=== PATIENT | male | born 1955 | race Caucasian/White ===

== ENCOUNTER → 2018-03-08 08:07 | Outpatient (CLI) | payer OTHER, MEDICARE, SELFPAY ==
[2018-03-08 09:02] LABS: Add Manual Diff / Slide Review NO; Basophils Percent Auto 1.2 % (0-2); Eosinophils Percent Auto 2.6 % (2-4); Hematocrit 42.1 % (41-53); Hemoglobin 14.4 g/dL (13.5-17.5); Lymphocytes Percent Auto 23.1 % (25-40); Mean Corpuscular HGB Conc 34.1 % (30-36); Mean Corpuscular Hemoglobin 30.2 PG (26-34); Mean Corpuscular Volume 88.6 fL (80-100); Neutrophils Absolute Auto 3400 /uL (3000-5900); Neutrophils Percent Auto 63.1 % (50-75); Platelet Count 237 X10^3/uL (150-400); Red Blood Cell Count 4.75 X10^6/uL (4.5-5.9); Red Cell Distribution Width 13.7 % (11.6-14.8); White Blood Cell Count 5.4 X10^3/uL (4.5-11.0)
[2018-03-08 09:11] LABS: Alanine Aminotransferase 47 IU/L (21-72); Albumin 4.4 g/dL (3.5-5.0); Albumin Globulin Ratio 1.5 (1.0-2.8); Alkaline Phosphatase 85 U/L (38-126); Aspartate Aminotransferase 41 IU/L (17-59); BUN Creatinine Ratio 11.1 (6-22); Bilirubin Total 0.6 mg/dL (0.2-1.3); Blood Urea Nitrogen 10 mg/dL (9-20); Calcium 9.6 mg/dL (8.4-10.2); Carbon Dioxide 30 mmol/L (22-32); Chloride 105 mmol/L (98-107); Cholesterol 154 mg/dL (140-199); Estimated Glomerular Filt Rate > 60.0 mL/min (>60); Globulin 2.9 g/dL (1.7-4.1); Glucose 97 mg/dL (80-110); HDL Cholesterol 52 mg/dL (40-60); HEMOLYSIS < 15 (0-50); LDL Cholesterol Calculated 78 mg/dL (<100); Potassium 4.2 mmol/L (3.4-5.1); Sodium 146 mmol/L (137-145); Total Protein 7.3 g/dL (6.3-8.2); Triglycerides 119 mg/dL (35-150)
== END ==
PROVIDERS: PCP Family Medicine; Visit Provider Family Medicine
DX: Z01.818 Encounter for other preprocedural examination (principal); Z13.220 Encounter for screening for lipoid disorders; Z13.29 Encounter for screening for other suspected endocrine disorder
CPT/HCPCS: 36415; 80053; 80061; 84443; 85025

== ENCOUNTER 2018-04-01 05:51 | Day surgery (SDC) | payer OTHER, SELFPAY ==
[2018-03-24 08:25] VITALS: BMI 29.9
[2018-04-01] VITALS (14 sets, daily range): BP systolic 98–163; BP diastolic 47–86; PULSE 48–80; RESP 15–20; TEMP 36.3–37.4; O2SAT 95–100; BMI 29.9
--- NOTE | 2018-04-01 | DI.RAD.S_ITS ---
PROCEDURE: XR CERVICAL SPINE 2V OR 3V INDICATIONS: C4-5, C5-6 MOBI C TECHNIQUE: 2 intraoperative fluoroscopic view(s) of the cervical spine were acquired. COMPARISON: None. FINDINGS: Intraoperative fluoroscopic images of cervical spine shows intervertebral spacer placement at C4-5 and C5-6 levels. Alignment of cervical spine is anatomic. IMPRESSION: Fluoroscopy guidance was provided intraoperatively for C4-5 and C5-6 fusion. Dictated by: Dar Alcantar M.D. on 04/01/2018 at 10:30 Approved by: Dar Alcantar M.D. on 04/01/2018 at 10:36
[2018-04-01] MEDS: LACTATED RINGERS 1,000 ML 42 ML IV ×2 (06:50→09:18)
--- NOTE | 2018-04-01 07:37 | PM.PREOP ---
Pre-operative Note Interval Note Pre-op Check: Yes History & Physical Reviewed by Physician and Yes Exam Performed Changes: No
[2018-04-01] MEDS: CEFAZOLIN 2 GM/100 ML FROZ.PIGGY IV ×2 (07:50→15:41)
--- NOTE | 2018-04-01 08:22 | SUR.OPER ---
Supine, head on gel donut. Arms padded with gel pads, tucked at sides, towel roll under shoulders. Safety belt at thigh. Legs uncrossed.
[2018-04-01] MEDS: SODIUM CHLORIDE 0.9% 1,000 ML, GENTAMICIN 80 MG IRR (08:45)
[2018-04-01] MEDS: BUPIVACAINE 0.25% W/ EPI VIAL 50 ML INJ (09:26)
--- NOTE | 2018-04-01 09:33 | P.OP_ITS ---
Operative Date/Time/Diagnoses Date of procedure: 04/01/18 Time of procedure: 09:29 Pre-op diagnosis: Cervical disc herniation with myelopathy Post-op diagnosis: same Procedure & Clinicians Procedure: C4-5 and C5-6 anterior cervical diskectomy and artificial disc replacements Use of microscope Same procedure as scheduled: Yes Indications: [age] year old male with intractable pain from cervical disc herniation with a left C6 radiculopathy. They had failed conservative management and requested operative intervention. Risks and benefits of surgery were discussed and appropriate consents were obtained. Surgeon: Hugh Aldana Wall Covering Contractor: Kelly Fuchs Anesthesia Type: General Operative Notes Findings: None Closure Type: primary Specimen(s): none sent Implants & Drains: Grzegorz LDR Mobi-C Estimated Blood Loss (mL): 5 Procedure in detail: Patient was brought to the operating room and intubated on the table. A time-out was performed. Preoperative antibiotics were given. The neck was prepped and draped in the standard sterile fashion. Using a skin fold, we made a 3 cm oblique incision on the left side. We used Bovie to go through the platysma and then did a standard anterolateral blunt dissection down to the precervical fascia. Fascia was nicked and elevated up. A marker was placed and x-ray was taken for localization. We then subperiosteally elevated up the longus colli muscles. Self-retaining retractors were placed. [place] pins were placed under x-ray guidance to be parallel to the endplates. We then brought in the microscope. A scalpel used to perform an annulotomy. We then used a combination of pituitaries and curettes and Kerrison to perform a complete anterior diskectomy at C5-6. We took down the PLL and used Kerrison to remove any posterior disc material and osteophytes. At the end we could from the nerve hook cephalad caudally and out the foramen and everything was opened. We distracted open with the parallel last trimmer. We then used the horseshoes for sizing. We then used the trials. We then inserted a 19 x 15 x 6 mm size Mobi-C artificial disc replacement under fluoroscopic guidance for positioning. The traction was released and x-ray was checked again. We then went up to C4-5 and moved our [place] pin up. Again a complete diskectomy was performed. We took down the PLL and removed the posterior disc material and osteophytes. A nerve hook could be run easily posterior to the vertebral bodies and out to the neural foramen. We trialed and this time placed a 15 x 15 x 5 mm Mobi-C ADR at C4-5 under fluoroscopic guidance. The traction was released and the x-ray was checked. We then removed our retractors and [place] pins. The wound was irrigated. Final x-rays taken. The wound was irrigated. There was no bleeding. The carotid was beating nicely. The platysma was closed. The superficial was closed. The skin was closed. A sterile dressing was placed. They were then extubated and brought to recovery room with no complications. Complications: none Condition: stable Disposition: PACU Plan for aftercare: Inpatient overnight. Probable discharge home tomorrow.
--- NOTE | 2018-04-01 10:30 | SUR.PHASEI ---
Pt wide awake, hemodynamically stable and turns independently to R side. Dressing remains intact, + CMS to lower extremities. Lisandro denies pain at this time, but has c/o being claustraphobic and states, I'm having a hard time with the neck brace. Pt ready to transfer to [facility] shortly.
--- NOTE | 2018-04-01 10:56 | SUR.OPER ---
Supine, head on gel donut. Arms padded with gel pads, tucked at sides, towel roll under shoulders. Safety belt at thigh. Legs uncrossed. Pillow under knees. Tape over blankets on legs.
[2018-04-01] MEDS: LACTATED RINGERS 1,000 ML 125 ML IV ×2 (11:57→21:46)
--- NOTE | 2018-04-01 12:29 | PC.NURSE ---
Post op: Arrived to room 221 from PACU at 1055. Awake and alert, oriented X3. 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 Does NOT wear hearing aids. Reports possibly early onset Parkinson's (per patient and his )- has tremors, memory loss, and tardive dyskinesia (from Hx of taking Risperdal which he has been off X2 years). Answers questions appropriately and follows commands WNL. Dressing to anterior neck C/D/I. Removed soft collar while in bed to facilitate eating. Rates pain 1/10, mostly in L shoulder. States I have a high pain tolerance. Understands he can request pain meds at any time. Denies paresthesias. Reports the numbness/tingling that he had in LUE before surgery seems to have resolved. C/O sore throat, denies nausea. Sitting up in bed working on some ice cream and crackers. IVF per orders, site in L hand WNL. SCD's placed. Oriented to room and call light, instructed to call for assist OOB. Surgery precautions discussed. Fall precautions in place.
--- NOTE | 2018-04-01 15:39 | PT.IIE ---
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) History of arthroplasty of left shoulder (Resolved 01/2017) Hx of surgical procedure (Resolved 07/2016) Hx of vasectomy (Resolved) Medical History (Last Updated 03/24/18 @ 08:38 by Lesvia Serrano RN) Arthritis (Acute) Constipation (Acute) Edema (Acute) [place] (hard of hearing) (Acute) HTN (hypertension) (Acute) History of short term memory loss (Acute) Tremors of nervous system (Acute) BPH (benign prostatic hyperplasia) (Chronic) Carpal tunnel syndrome (Chronic 1998) Chronic back pain (Chronic 1998) Chronic cough (Chronic 2014) Dementia (Chronic 2000) Depression (Chronic 1974) Excess skin (Chronic 11/2014) Hyperlipidemia (Chronic) PTSD (post-traumatic stress disorder) (Chronic 1974) Parkinson's disease (Chronic 2010) Restless leg syndrome (Chronic 2004) Sleep apnea (Chronic 1999) Tardive dyskinesia (Chronic) Abnormal chest x-ray (Resolved 1985) Foot pain (Resolved 2004) Hx of diabetes mellitus (Resolved ~11/2014) Shoulder pain (Resolved 1998) Physical Therapy Inpatient Evaluation/Re-Eval M1 PT/OT-IP Prior Functional Status Start: 04/01/18 16:53 Freq: NEEDED Status: Active Protocol: Document 04/01/18 16:59 [facility] (Rec: 04/01/18 17:21 [facility] [id number]) Medical Review Prior Functional Status Medical History Reviewed Yes Diet/Fluid Consistency Regular Thin Liquids Communication Independent Mobility and Gait Pt states occasionally used a straight cane. Activities of Daily Living and IADL's Pt states independent with all ADL and IADL needs. Social History Household Members spouse Living Arrangements House Number of Floors (Floors) One Floor Number of Stairs To Enter/Railing? Pt has a ramp to enter the house. Home Environment Standard Height Toilet Walk in Shower Home Equipment Shower Seat with Backrest Hand Held Shower M2 PT-IP Current Condition Start: 04/01/18 17:21 Freq: NEEDED Status: Active Protocol: Document 04/01/18 15:39 [facility] (Rec: 04/01/18 17:50 [facility] [id number]) Physical Therapy Current Condition Current Condition Evaluation Date 04/01/18 Treatment Diagnosis S/P C4-6 ant cerv. diskectomy & artificial disc replacement; diff in walkin Onset Date 04/01/18 Precautions Cervical Spine Precautions Soft Collar for Comfort No Heavy Lifting Log Roll Lumbar Precautions Log Roll Brace soft collar M3 PT-IP Subjective Start: 04/01/18 17:21 Freq: NEEDED Status: Active Protocol: Document 04/01/18 15:39 [facility] (Rec: 04/01/18 17:50 AB [id number]) Subjective Physical Therapy Visit Type Type Initial Evaluation Visit Start Time 15:39 Visit Stop Time 16:00 Total Visit Minutes 21 Number of SHINGLE PACKER Visits 0 Physical Therapy Visit Comments Patient Comments pt agreeable to do PT Therapy Pain Assessment Pain When Pain Assessed At Rest Pain Present Pain Present Pain Reported Location Shoulder Intensity 1 Scale Used Numeric (1 - 10) M4 PT-IP Mobility and Gait Start: 04/01/18 17:21 Freq: NEEDED Status: Active Protocol: Document 04/01/18 15:39 [facility] (Rec: 04/01/18 17:50 AB [id number]) PT-Bed Mobility Assessment Rolling Type of Rolling Log Rolling Level of Assist Standby Assistance Supine to Sit Supine to Sit Standby Assistance Sit to Supine Sit to Supine Standby Assistance PT-Transfer Assessment Sit to and From Stand Sit to and from Stand Standby Assistance Equipment Transfer Assistive Device Gait Belt Gait Assessment Gait Gait Assistance Required: Standby Assistance Distance (Feet) 40 Able to Maintain Weight Bearing Status Yes During Gait Assistive Devices Assistive Device None Gait Belt Orthotic/Prosthetic Devices or Brace: No Factors Limiting Gait Function Factors Limiting Gait Function Decreased Activity Tolerance Decreased Strength Pain Comments Gait Comments pt refused to use soft collar during mobility stating that he is claustrophobic. pt was able to maintain his precautions even without collar on. PT-Balance Assessment Sitting Balance and Reactions Static Sitting Balance Ability Normal Dynamic Sitting Balance Ability Normal Standing Balance and Reactions Static Standing Balance Ability Good Dynamic Standing Balance Ability Good Device Used without AD M5 PT-IP Objective Assessments Start: 04/01/18 17:21 Freq: NEEDED Status: Active Protocol: Document 04/01/18 15:39 [facility] (Rec: 04/01/18 17:50 AB [id number]) Orientation Orientation/Cognition Level of Alertness Alert Orientation Name Age Birthday Month Date Year Day of Week Place Situation Safety Awareness Understands Safety Issues Memory Description No Deficits Noted Gross Range of Motion Lower Extremity ROM Assessment Within Functional Limits Strength Lower Extremity Strength Assessment Within Functional Limits Sensation Assessment Sensation Gross Sensation WNL Muscle Tone Muscle Tone WNL Yes M6 PT-IP Treatment Start: 04/01/18 17:21 Freq: NEEDED Status: Active Protocol: Document 04/01/18 15:39 [facility] (Rec: 04/01/18 17:50 AB [id number]) Physical Therapy Treatment Education Education Provided Precautions Post-Op Packet Safety M7 PT-IP Assessment and Plan Start: 04/01/18 17:21 Freq: NEEDED Status: Active Protocol: Document 04/01/18 15:39 [facility] (Rec: 04/01/18 17:50 AB [id number]) PT Summary Assessment and Plan Potential Rehabilitation Potential Good Status of Condition at Evaluation Stable Summary Impairments Pain ROM Strength Balance Bed Mobility Transfers Gait Activity Tolerance Assessment Summary pt doing well with mobility requiring SBA. pt plans to go home with spouse to assist. Goals Bed Mobility Goal Independent Transfer Goal Independent Gait Goal Independent Gait Distance 200 Other Goals STG: improve bed mobility, transfers, ambulation without AD up to 200 ft mod I LTG: to improve ambulation without AD up to 300 ft mod I Days to Meet Goals 2 Frequency of Treatment Frequency Of Treatment Once a Day Treatment Plan Physical Therapy Treatment Plan Bed Mobility Training Transfer Training Gait Training Therapeutic Exercise Balance Retraining Post Op Education Discharge Planning Hot or Cold Pack Neuromuscular Re-ed Coordination Retraining Manual Therapy Recommendations To Nursing Amount of Assist Needed Standby Assistance Discharge Recommendations PT Discharge Recommendations Home with Assistance
[2018-04-01] MEDS: NAPROXEN 250 MG TABLET 500 MG PO (16:55)
--- NOTE | 2018-04-01 17:21 | OT.IP.EVAL ---
Current Diagnoses Spinal stenosis, cervical region (04/01/18) Other cervical disc displacement, unspecified cervical region (04/01/18) Radiculopathy, cervical region (04/01/18) Surgery Performed Operation Date: 04/01/18 07:45 Actual Procedures p C4-5, C5-6 Anterior discectomy & artificial disc replacement - Hugh Aldana MD Past Medical History (Last Updated 03/24/18 @ 08:38 by Lesvia Serrano RN) Arthritis (Acute) Constipation (Acute) Edema (Acute) [place] (hard of hearing) (Acute) HTN (hypertension) (Acute) History of short term memory loss (Acute) Tremors of nervous system (Acute) BPH (benign prostatic hyperplasia) (Chronic) Carpal tunnel syndrome (Chronic 1998) Chronic back pain (Chronic 1998) Chronic cough (Chronic 2014) Dementia (Chronic 2000) Depression (Chronic 1974) Excess skin (Chronic 11/2014) Hyperlipidemia (Chronic) PTSD (post-traumatic stress disorder) (Chronic 1974) Parkinson's disease (Chronic 2010) Restless leg syndrome (Chronic 2004) Sleep apnea (Chronic 1999) Tardive dyskinesia (Chronic) Abnormal chest x-ray (Resolved 1985) Foot pain (Resolved 2004) Hx of diabetes mellitus (Resolved ~11/2014) Shoulder pain (Resolved 1998) Surgical History (Last Updated 03/24/18 @ 08:38 by Lesvia Serrano RN) Hx of tonsillectomy (Acute) History of Jeff-en-Y gastric bypass (Resolved 11/2014) History of arthroplasty of left shoulder (Resolved 01/2017) Hx of surgical procedure (Resolved 07/2016) Hx of vasectomy (Resolved) Occupational Therapy Inpatient Evaluation/Re-Eval M1 PT/OT-IP Prior Functional Status Start: 04/01/18 16:53 Freq: NEEDED Status: Active Protocol: Document 04/01/18 16:59 [facility] (Rec: 04/01/18 17:21 [facility] [id number]) Medical Review Prior Functional Status Medical History Reviewed Yes Diet/Fluid Consistency Regular Thin Liquids Communication Independent Mobility and Gait Pt states occasionally used a straight cane. Activities of Daily Living and IADL's Pt states independent with all ADL and IADL needs. Social History Household Members spouse Living Arrangements House Number of Floors (Floors) One Floor Number of Stairs To Enter/Railing? Pt has a ramp to enter the house. Home Environment Standard Height Toilet Walk in Shower Home Equipment Shower Seat with Backrest Hand Held Shower M2 OT-IP Current Condition Start: 04/01/18 16:53 Freq: Status: Active Protocol: Document 04/01/18 16:59 [facility] (Rec: 04/01/18 17:21 [facility] [id number]) Occupational Therapy Current Condition Current Condition Evaluation Date 04/01/18 Treatment Diagnosis cervical disc herniation with myelopathy Diagnosis Onset Date 04/01/18 Post Operative Precautions Cervical Spine Precautions Soft Collar for Comfort No Heavy Lifting Log Roll Lumbar Precautions Log Roll M3 OT- IP Subjective and Pain Start: 04/01/18 16:53 Freq: Status: Active Protocol: Document 04/01/18 16:59 [facility] (Rec: 04/01/18 17:21 [facility] [id number]) OT- Subjective Occupational Therapy Visit Type Type Initial Evaluation Visit Start Time 15:07 Visit Stop Time 15:22 Total Visit Minutes 15 Occupational Therapy Visit Comments Patient/Caregiver Goals Pt wanting to go home when stable tomorrow. OT Pain Assessment Pain When Pain Assessed At Rest Pain Present Pain Present Pain Reported Location Shoulder Intensity 2 Scale Used Numeric (1 - 10) Description Aching M4 OT- IP ADL's Start: 04/01/18 16:53 Freq: Status: Active Protocol: Document 04/01/18 16:59 [facility] (Rec: 04/01/18 17:21 [facility] [id number]) OT ADL-Dressing Comments OT Dressing Comments Pt able to cross his legs over for socks. Pt not wanting to wear soft collar due to feeling of claustrophobia. OT ADL-Toileting General Evaluation Toileting Ability Independent Comments OT Toileting Comments Pt able to push IV pole and into the bathroom and kick IV pole over threshold while standing on one foot with good balance. M6 OT- IP Functional Cognition Start: 04/01/18 16:53 Freq: Status: Active Protocol: Document 04/01/18 16:59 [facility] (Rec: 04/01/18 17:21 [facility] [id number]) Cognitive Factors Limiting Selfcare Function Cognitive Ability Level of Alertness Alert Patient Orientation Name Place Situation Attention Span Ability Capable of Focused Attention Capable of Sustained Attention Ability to Follow Commands Able to Follow Multi-Step Commands Memory Description No Deficits Noted Safety Awareness Underestimates Need for Assistance Cognitive Comments Cognitive Assessment Comments Pt needing cue to slow down and to use call button before getting up. M7 OT- IP Mobility and Balance Start: 04/01/18 16:53 Freq: Status: Active Protocol: Document 04/01/18 16:59 [facility] (Rec: 04/01/18 17:21 [facility] [id number]) OT- Bed Mobility Assessment Rolling Type of Rolling Roll to Right Supine to Sit Supine to Sit Assist Standby Assistance Sit to Supine Sit to Supine Assist Standby Assistance OT-Transfer Assessment Sit to and From Stand Sit to and from Stand Standby Assistance Transfers Transfer Ability Standby Assistance Technique Transfer Destination Bed Devices Transfer Assistive Devices None Gait Belt Comments Mobility Comments Pt able to walk in the room while holding IV pole and without at times. OT- Balance Assessment Sitting Balance and Reactions Static Sitting Balance Ability Normal Dynamic Sitting Balance Ability Normal Standing Balance and Reactions Static Standing Balance Ability Normal Dynamic Standing Balance Ability Good M8 OT- IP Objective Assessments Start: 04/01/18 16:53 Freq: Status: Active Protocol: Document 04/01/18 16:59 [facility] (Rec: 04/01/18 17:21 [facility] [id number]) OT Gross Range of Motion Upper Extremity Range of Motion Assessment Within Functional Limits OT Strength Upper Extremity Strength Assessment Within Functional Limits M9 OT- IP Assessment and Plan Start: 04/01/18 16:53 Freq: Status: Active Protocol: Document 04/01/18 16:59 [facility] (Rec: 04/01/18 17:21 [facility] [id number]) OT Summary Assessment and Plan Potential Rehabilitation Potential Excellent Analytic Complexity at Evaluation Low Summary OT Impairments Pain Functional Cognition Bathing Progress Towards Goals Progressing Toward Goals Assessment Summary Pt doing well and mainly just needing vc to slow down. Pt looking to go home tomorrow. Therefore to touch base with pt's and pt before discharge. Goals Dressing Goal Independent Bathing Goal Standby Assistance Shower Transfer Goal Standby Assistance Patient/Caregiver Education Goal Demonstrate Post-Op Precautions Caregiver Independent Assisting Patient Days to Meet Goals 2 Frequency of Treatment Frequency Of Treatment Once a Day Treatment Plan OT Treatment Plan ADL Training Functional Cognition Training Functional Mobility Patient/Family Education Discharge Planning Other Treatment Recommendations and Next Shower Treatment Focus Discharge Recommendations OT Discharge Recommendations Home with Assistance
[2018-04-01] MEDS: AMANTADINE 100 MG CAPSULE PO (20:53)
[2018-04-01] MEDS: buPROPion SR 150 MG TAB PO (20:54)
[2018-04-01] MEDS: GABAPENTIN 300 MG CAPSULE PO (20:54)
[2018-04-01] MEDS: SIMVASTATIN 20 MG TABLET PO (20:54)
[2018-04-01] MEDS: hydrOXYzine pamoate 25 MG CAPSULE PO (20:55)
[2018-04-02 00:02] VITALS: BP 139/75; PULSE 58; RESP 18; TEMP 36.9; O2SAT 97
[2018-04-02] MEDS: CEFAZOLIN 2 GM/100 ML FROZ.PIGGY IV (00:03)
--- NOTE | 2018-04-02 00:44 | PC.NURSE ---
Rn Heart Note: 0005: Awake, sitting up at bedside. Pt states his pain level is 1/10. Pt tolerating snack without difficulty swallowing. IV in place in lt wrist with LR infusing at 125cc/hr. Dressing to lt anterior neck intact, with small amount serosanguinous drainage. Pt continues to wear soft cervical collar.
[2018-04-02 04:10] VITALS: BP 135/67; PULSE 52; RESP 20; TEMP 36.4; O2SAT 98
[2018-04-02] MEDS: LACTATED RINGERS 1,000 ML 125 ML IV (06:24)
[2018-04-02 07:30] VITALS: BP 128/88; PULSE 55; RESP 18; TEMP 36.7; O2SAT 99
--- NOTE | 2018-04-02 07:53 | PM.PNPO.1 ---
Subjective Date Patient Seen: 04/02/18 Time Patient Seen: 07:53 Interval history: Doing very well. Almost all the arm symptoms have resolved. Minimal pain. Exam Vital Signs (past 8 hours): - 04/02/18 00:02 04/02/18 04:10 Temperature 98.4 F 97.5 F L Pulse Rate 58 L 52 L Respiratory Rate 18 20 Blood Pressure 139/75 135/67 Pulse Oximetry 97 98 Oxygen Delivery Method Room Air Const Orientation: alert and oriented x3 Back/Spine/Pelvis Other: Mild drainage on dressing. 5/5 motor both upper extremities Assessment & Plan Post-op Postoperative Procedures Operation Date: 04/01/18 07:45 Actual Procedures Side Surgeon p C4-5, C5-6 Anterior discectomy & artificial disc replacement Hugh Aldana MD He is doing very well. Discharged home after therapy. Quality VTE Deep Vein Thrombosis/Pulmonary Embolism Present on Admission: No
[2018-04-02] MEDS: NAPROXEN 250 MG TABLET 500 MG PO (09:39)
[2018-04-02] MEDS: ASCORBIC ACID 500 MG TABLET 1000 MG PO (09:40)
[2018-04-02] MEDS: ASPIRIN EC 81 MG TABLET PO (09:40)
[2018-04-02] MEDS: AMANTADINE 100 MG CAPSULE PO (09:40)
[2018-04-02] MEDS: buPROPion SR 150 MG TAB PO (09:40)
[2018-04-02] MEDS: CHOLECALCIFEROL (VITAMIN D3) 1,000 UNIT TABLET 1000 UNIT PO (09:40)
[2018-04-02] MEDS: VITAMIN E 400 UNIT CAPSULE PO (09:41)
[2018-04-02] MEDS: MULTIVITAMIN 1 TABLET 1 TAB PO (09:41)
[2018-04-02] MEDS: TAMSULOSIN 0.4 MG CAPSULE PO (09:41)
[2018-04-02] MEDS: CYANOCOBALAMIN (VITAMIN B-12) 500 MCG TABLET 2500 MCG PO (09:41)
--- NOTE | 2018-04-02 09:58 | CM.DANOTE ---
DCP: Case received, EMR reviewed and met with patient. Introduced self and role. DCP template completed with information currently available. Patient is a 62 year old male who admitted yesterday for surgical day surgery, to the care of the hospitalist team. PCP: Heather Collier. Payer: [place] [employer]. Patient came to hospital for anterior cervical diskectomy. Patient has a history of cervical disc herniation. Met with patient and spouse in room. Wearing a neck brace, alert and oriented, pleasant. Is independent at home, lives in [place]. P: To return home, may be seeing outpatient physical therapy. Estella Choi RN/Mail Handler
--- NOTE | 2018-04-02 10:46 | OT.IP.TRT ---
Current Diagnoses Spinal stenosis, cervical region (04/01/18) Other cervical disc displacement, unspecified cervical region (04/01/18) Radiculopathy, cervical region (04/01/18) Surgery Performed Operation Date: 04/01/18 07:45 Actual Procedures p C4-5, C5-6 Anterior discectomy & artificial disc replacement - Hugh Aldana MD Occupational Therapy Treatment Note M2 OT-IP Current Condition Start: 04/01/18 16:53 Freq: Status: Active Protocol: Document 04/01/18 16:59 [facility] (Rec: 04/01/18 17:21 [facility] [id number]) Occupational Therapy Current Condition Current Condition Evaluation Date 04/01/18 Treatment Diagnosis cervical disc herniation with myelopathy Diagnosis Onset Date 04/01/18 Post Operative Precautions Cervical Spine Precautions Soft Collar for Comfort No Heavy Lifting Log Roll Lumbar Precautions Log Roll M3 OT- IP Subjective and Pain Start: 04/01/18 16:53 Freq: Status: Active Protocol: Document 04/02/18 10:45 [facility] (Rec: 04/02/18 10:45 [facility] [id number]) OT- Subjective Occupational Therapy Visit Type Type Administrative Note Notes Pt going home today and has supportive and no further OT needs. No charge.
[2018-04-02] MEDS: HYDROCODONE/ACET 5/325 TABLET 1 TAB PO (10:51)
--- NOTE | 2018-04-02 10:57 | PC.NURSE ---
Addendum entered by Shaniqua Hope R.N. 04/02/18 12:51: Discharge: (Left approx 1230)- D/C instructions provided and reviewed thoroughly with patient and his . Given scripts for Vicodin and Naproxen. All belongings collected and sent with patient. IV dc'd intact. Assisted into wheelchair and taken out by nursing staff. Original Note: Wound care: Dressing to anterior neck replaced, per MD order, in anticipation of discharge home. Incision to anterior neck well approximated with steri strips in place. No active bleeding, drainage or erythema. Covered with Telfa and Tegaderm (which was the same the dressing that was removed). Medicated with 1 tab Vicodin for 2/10 neck pain. Getting dressed with his 's assistance.
== END 2018-04-02 12:52 | disposition home or self-care (01) ==
LOC: OR 06:06 → AC 06:07
PROVIDERS: PCP Family Medicine; Visit Provider Orthopaedic Surgery
PROC: (CPT 22856; principal; 2018-04-01 07:45)
DX: M50.021 Cervical disc disorder at C4-C5 level with myelopathy (principal); M48.02 Spinal stenosis, cervical region; M54.12 Radiculopathy, cervical region; G47.33 Obstructive sleep apnea (adult) (pediatric); I48.91 Unspecified atrial fibrillation; G20 Parkinson's disease; Z87.891 Personal history of nicotine dependence
CPT/HCPCS: 22856; 22858; 72040; 76001; 97161; 97165; 99406; C1776; J0690; J1100; J2405; J2704; J3010

== ENCOUNTER 2019-05-21 12:48 | Emergency (ER) | payer OTHER, SELFPAY ==
[2018-04-01 11:24] VITALS: BMI 29.9
[2019-05-21 13:00] VITALS: BP 151/79; PULSE 67; RESP 18; TEMP 36.8; O2SAT 93
[2019-05-21 14:04] LABS: Add Manual Diff / Slide Review NO; Basophils Absolute Auto 100 /uL (0-100); Basophils Percent Auto 1.2 % (0-2); Eosinophils Absolute Auto 200 /uL (0-450); Eosinophils Percent Auto 3.1 % (2-4); Hematocrit 44.4 % (41-53); Hemoglobin 15.1 g/dL (13.5-17.5); INR 0.9 (0.9-1.3); Lymphocytes Absolute Auto 1600 /uL (1100-4500); Lymphocytes Percent Auto 29.5 % (25-40); Mean Corpuscular HGB Conc 33.9 % (30-36); Mean Corpuscular Hemoglobin 30.3 PG (26-34); Mean Corpuscular Volume 89.2 fL (80-100); Monocytes Absolute Auto 600 /uL (0-900); Monocytes Percent Auto 11.3 % (3-14); Neutrophils Absolute Auto 3000 /uL (1500-7000); Neutrophils Percent Auto 54.9 % (50-75); Platelet Count 315 X10^3/uL (150-400); Prothrombin Time 10.9 SECONDS (10.1-12.7); Red Blood Cell Count 4.98 X10^6/uL (4.5-5.9); Red Cell Distribution Width 13.9 % (11.6-14.8); White Blood Cell Count 5.5 X10^3/uL (4.5-11.0)
[2019-05-21 14:07] LABS: PTT Partial Thromboplastin Tim 31 SECONDS (26.4-36.2)
--- NOTE | 2019-05-21 14:20 | ED.ABDPAIN ---
HPI - Abdominal Pain General Chief Complaint: Abdominal Pain Stated Complaint: Gastro pain stomach pain since 05/15/19 Time Seen by Provider: 05/21/19 14:08 Source: patient and family Mode of arrival: Ambulatory Limitations: no limitations History of Present Illness HPI narrative: 63-year-old male comes to the emergency department with complaint of abdominal pain. Patient states pain started on the . Been sort of crampy sort of lower abdomen bilateral but also sort of radiates down lower suprapubically. No radiation to the back. States it does seem to radiate down towards the testicles patient states in the past it's felt like something is almost tugging on his testicle when he is moving at times. He states nothing seems to make it better or worse. Patient saw his primary care physician on the they suspected that he may have something more going on and tried order a CT but they're still awaiting prior authorization. Denies fevers. Patient has felt flushed occasionally in clammy occasionally. No vomiting but occasional nausea. He has been eating regularly with small meals which is his typical because he had a gastric bypass in 2014. He has had normal bowel movements and had 3 here in the emergency department which he states were normal consistency and were not liquidy or watery. Patient has not appreciated any changes with urination, he does not have any urgency, frequency or dysuria. He does chronically have some nocturia and takes a BPH medication. He states he takes medication for cholesterol very low dose and a daily aspirin. Besides his gastric bypass in 2014 he had a penectomy in 2017. Vasectomy in the 80s, left shoulder replacement and had neck surgery remotely. Allergic to sulfa, codeine makes him constipated. Occasional tobacco with [place] cigar. No alcohol, no illicit. Related Data Home Medications Medication Instructions Recorded Confirmed aspirin 81 mg PO QDAY #0 08/06/12 04/01/18 vitamin E 400 u PO QDAY #0 02/12/16 04/01/18 ascorbic acid (vitamin C) 1,000 mg PO QDAY #0 10/13/16 04/01/18 cholecalciferol (vitamin D3) 1,000 unit PO QDAY #0 10/13/16 04/01/18 [Vitamin D3] cyanocobalamin (vitamin B-12) 2,500 mcg PO QDAY #0 01/19/17 04/01/18 multivitamin 1 cap PO DAILY 03/07/18 04/01/18 vitamins A and D3 in cod liver oil 1 cap PO DAILY cap 03/07/18 04/01/18 1,250 unit-135 unit capsule ferrous sulfate, dried [iron] 81 mg PO DAILY 04/01/18 04/01/18 Previous Rx's Medication Instructions Recorded simvastatin 20 mg PO HS #90 tab 04/19/17 tamsulosin [Flomax] 0.4 mg PO QDAY #90 cap 09/09/17 bupropion HCl 150 mg tablet,12 hr 150 mg PO BID #180 tab 11/15/17 sustained-release amantadine HCl 100 mg capsule 100 mg PO BID #180 tab 02/21/[address] #1 ea 03/07/18 hydrocodone-acetaminophen 1 tab PO Q4HR PRN #15 tab 04/02/18 naproxen 500 mg PO BIDWM #60 tab 04/02/18 calcium citrate 250 mg 1 tab PO BID #90 tab 05/06/18 calcium-vitamin D3 200 unit tablet docusate sodium 250 mg capsule 250 mg PO BEDTIME #90 cap 05/06/18 calcium carbonate-vitamin D3 250 1 tab PO BID #90 tab 05/27/18 mg-125 unit tablet Allergies Allergy/AdvReac Type Severity Reaction Status Date / Time Sulfa (Sulfonamide Allergy Unknown AGE 1 - Verified 04/01/18 07:24 Antibiotics) UNKNOWN REACTION Review of Systems Review of Systems ROS Unobtainable: All systems reviewed & are unremarkable except as noted in HPI and below Patient History Medical History Abnormal chest x-ray (Resolved 1985) Arthritis (Acute) BPH (benign prostatic hyperplasia) (Chronic) Carpal tunnel syndrome (Chronic 1998) Chronic back pain (Chronic 1998) Chronic cough (Chronic 2014) Constipation (Acute) Dementia (Chronic 2000) Depression (Chronic 1974) Edema (Acute) Excess skin (Chronic 11/2014) Foot pain (Resolved 2004) History of short term memory loss (Acute) [place] (hard of hearing) (Acute) HTN (hypertension) (Acute) Hx of diabetes mellitus (Resolved ~11/2014) Hyperlipidemia (Chronic) Parkinson's disease (Chronic 2010) PTSD (post-traumatic stress disorder) (Chronic 1974) Restless leg syndrome (Chronic 2004) Shoulder pain (Resolved 1998) Sleep apnea (Chronic 1999) Tardive dyskinesia (Chronic) Tremors of nervous system (Acute) Surgical History History of arthroplasty of left shoulder (Resolved 01/2017) History of Jeff-en-Y gastric bypass (Resolved 11/2014) Hx of surgical procedure (Resolved 07/2016) Hx of tonsillectomy (Acute) Hx of vasectomy (Resolved) Family History Father Heart disease Mother Heart disease Brother No problems noted. Grandfather Heart disease Grandmother No problems noted. Grandmother No problems noted. Social History household members: spouse Smoking Status: Current some day smoker Tobacco: How many years used: 15 alcohol intake: former Smoking Status: Current some day smoker Substance Use Type: does not use Exam Narrative Exam Narrative: GENERAL: Alert and oriented x three, obese male in mild distress. HEENT: Head normocephalic, atraumatic, EOMI, pupils reactive, face symmetric, moist mucous membranes NECK: Supple, full range of motion CARDIOVASCULAR: Regular rate and rhythm without murmurs, rubs or gallops. RESPIRATORY: Breath sounds equal bilaterally, no wheezes rales or rhonchi. ABDOMEN: Soft, suprapubic tenderness. Patient does have some tenderness in the left inguinal region. Based on patient's habitus I am not able to feel a discrete hernia but there is a small nodular like area that could potentially be hernia that is tender to palpation in the inguinal area on the left. It does not feel like a lymph node. Normoactive bowel sounds all 4 quadrants. No guarding or rebound, rigidity, no mass. Non-distended. : No CVA tenderness, no testicular pain. EXTREMITIES: Normal range of motion, no clubbing or edema. Neurovascularly intact NEUROLOGICAL: Cranial nerves II through XII grossly intact. Moving all extremities. Normal gait. SKIN: Warm, dry, no petechiae, no rashes or lesions. Initial Vital Signs Initial Vital Signs: Vital Signs Temperature 98.2 F 05/21/19 13:00 Pulse Rate 67 05/21/19 13:00 Respiratory Rate 18 12/29/19 13:00 Blood Pressure 151/79 H 05/21/19 13:00 Pulse Oximetry 93 05/21/19 13:00 Course Orders Ordered: ED Orders 05/21/19 13:43 EKG-12 Lead Stat 05/21/19 13:50 Complete Blood Count AUTO DIFF Stat Comprehensive Metabolic Panel Stat Lipase Stat Partial Thromboplastin Time Stat Prothrombin Time INR Stat 05/21/19 14:33 CT abdomen pelvis w con Stat Discontinued Medications Acetaminophen (Tylenol) 975 mg PO NOW ONE Stop: 05/21/19 14:34 Last Admin: 05/21/19 14:42 Dose: 975 mg Documented by: WINDY Sodium Chloride (Normal Saline 0.9%) 1,000 mls @ 150 mls/hr IV CONT TANIKA Last Infusion: 05/21/19 16:13 Dose: 0 mls/hr Documented by: Admin: 05/21/19 14:42 Dose: 150 mls/hr Documented by: WINDY Sodium Chloride (Normal Saline 0.9%) 1,000 mls @ 125 mls/hr IV CONT TANIKA Vital Signs Vital signs: Vital Signs - 8 hr 05/21/19 13:00 05/21/19 14:43 05/21/19 15:22 Temperature 98.2 F Pulse Rate 67 52 L 50 L Respiratory Rate 18 14 Blood Pressure 151/79 H Blood Pressure [Left Arm] 141/75 H 133/80 Pulse Oximetry 93 100 98 MDM - Abdominal Pain Lab Data Attestation: I reviewed the patient's lab results. Result diagrams: 05/21/19 13:50 05/21/19 13:50 Labs: Lab Results 05/21/19 05/21/19 05/21/19 Range/Units 13:50 13:50 13:50 WBC 5.5 (4.5-11.0) X10^3/uL RBC 4.98 (4.5-5.9) X10^6/uL Hgb 15.1 (13.5-17.5) g/dL Hct 44.4 (41-53) % MCV 89.2 (80-100) fL MCH 30.3 (26-34) PG MCHC 33.9 (30-36) % RDW 13.9 (11.6-14.8) % Plt Count 315 (150-400) X10^3/uL Neut % (Auto) 54.9 (50-75) % Lymph % (Auto) 29.5 (25-40) % [place] % (Auto) 11.3 (3-14) % Eos % (Auto) 3.1 (2-4) % Baso % (Auto) 1.2 (0-2) % Neut # (Auto) 3000 (2709-5635) /uL Lymph # (Auto) 1600 (8194-3647) /uL [place] # (Auto) 600 (0-900) /uL Eos # (Auto) 200 (0-450) /uL Baso # (Auto) 100 (0-100) /uL PT 10.9 (10.1-12.7) SECONDS INR 0.9 (0.9-1.3) APTT 31 (26.4-36.2) SECONDS Sodium 140 (137-145) mmol/L Potassium 4.3 (3.4-5.1) mmol/L Chloride 105 (98-107) mmol/L Carbon Dioxide 25 (22-32) mmol/L BUN 14 (9-20) mg/dL Creatinine 1.10 (0.66-1.25) mg/dL Estimated GFR > 60.0 (>60) mL/min BUN/Creatinine Ratio 12.7 (6-22) Glucose 74 L (80-110) mg/dL Calcium 9.4 (8.4-10.2) mg/dL Total Bilirubin 0.4 (0.2-1.3) mg/dL AST 45 (17-59) IU/L ALT 52 H (<50) IU/L Alkaline Phosphatase 111 (38-126) U/L Total Protein 7.5 (6.3-8.2) g/dL Albumin 4.6 (3.5-5.0) g/dL Globulin 2.9 (1.7-4.1) g/dL Albumin/Globulin Ratio 1.6 (1.0-2.8) Lipase 128 (23-300) U/L Point of care testing: Urine Dip Bedside Urine Glucose Negative Bedside Urine Bilirubin - Negative Bedside Urine Ketone - Negative Urine Specific [place] 1.005 Bedside Urine Occult Blood - Negative Bedside Urine pH 6.0 Bedside Urine Protein - Negative Bedside Urine Urobilinogen - Negative Bedside Urine Nitrite - Negative Bedside Urine Leukocytes - Negative Esterase Imaging Data CT scan - abdomen/pelvis: Radiologist's Impression: Lisandro Cid 63 M [address] [address] [address] Scan Report Signed Patient: Lisandro Cid LMR#: [id number] : 5Acct:[id number] Age/Sex: 63 / MDate of Service: 05/21/19 Loc: ED Accession Number: [id number] Procedure: CT abdomen pelvis w con Ordering Provider: Nilsa Trivedi D.O. PROCEDURE: CT ABDOMEN PELVIS W CON INDICATIONS: suprapubic pain/abdominal b/l, ? hernia L inguinal TECHNIQUE: After the administration of intravenous contrast, 5 mm thick sections acquired from the diaphragm to the symphysis. 5 mm coronal and sagittal reformats were acquired. For radiation dose reduction, the following was used: automated exposure control, adjustment of mA and/or kV according to patient size. COMPARISON: None. FINDINGS: Image quality: Excellent. ABDOMEN: Lung bases: Lung bases are clear. Heart size is normal. A moderate sized hiatal hernia. Solid organs: Low-density nodules in the liver most likely cysts. Liver is normal in size and enhancement. Gallbladder is normal. Biliary system is non dilated. Pancreas enhances normally. Spleen is normal in size and enhancement. There is a 1 cm left adrenal nodule. Kidneys demonstrate normal size and enhancement, without hydronephrosis. There left renal cortical scars. Mildly distended distal left ureter but no left uterus stones. There is a 1.1 cm indeterminate cortical nodule in the right kidney. Peritoneum and bowel: There are post surgical changes in stomach, presumably for gastric bypass. Bowel loops demonstrate normal wall thickness and caliber. There are numerous colonic diverticula. The moderate to large amount of stool in colon. No free fluid or air. Nodes and vessels: No retroperitoneal or mesenteric adenopathy by size criteria. Aorta and inferior vena cava are normal in size. Miscellaneous: ventral hernias. PELVIS: Genitourinary: Bladder is mildly distended. Bladder wall thickness is normal. Enlarged prostate. Miscellaneous: No inguinal adenopathy. Small fat containing left inguinal hernia. Bones: No suspicious bony lesions. No vertebral body compression fractures. IMPRESSION: 1. No acute inflammatory process in abdomen or pelvis. 2. Post surgical changes in stomach presumably for gastric bypass. There is a moderate-sized hiatal hernia. 3. Left renal cortical scars. No renal stones or hydronephrosis. Mildly distended distal left ureter but no left uterus stones. 4. Enlarged prostate. 5. Diverticulosis without acute diverticulitis. 6. A 1 cm left adrenal nodule. If clinically indicated, adrenal CT or MRI may be obtained. The result was discussed with Dr. Trivedi. Dictated by: Abdiaziz Cheung M.D. on 05/21/2019 at 15:21 Approved by: Abdiaziz Cheung M.D. on 05/21/2019 at 15:41 ECG Data Attestation: I personally reviewed and interpreted this ECG as follows: Prior ECG tracings: available for review Interpretation: Sinus bradycardia rate of 57 P are 142 QRS of 112 and QTC of 404. No ST elevation depression appreciated. Patient has prior EKG from 12/31/2014 for comparison. No major ST segment changes. MDM Narrative Medical decision making narrative: Discussed with patient does not have any major lab abnormalities, urine 1.005 but negative for infection or hematuria. Patient does have some tenderness in the left inguinal area has what might be a hernia although it's quite difficult to palpate on feels small. Suspect he may have a small fat containing hernia as patient has been having regular bowel movements but plan for CT imaging. Patient has no acute inflammatory changes abdomen pelvis. Postsurgical changes are noted. Some left renal cortical [place] mildly distended distal left ureter but no left ureter stones. With a large prostate. There is a 1 cm left adrenal node, patient does have a small fat containing left inguinal hernia but with no signs of bowel involvement. Discussed with patient inguinal hernia could be potentially the cause of his pain. He is having normal bowel movements and I would recommend follow-up with General surgery for discussion. We also discussed that he had an adrenal nodule and should have potentially follow-up with CT or MRI in the future if he in his physician's feel appropriate. Patient till it still looks somewhat uncomfortable. Was offered additional pain medication and he defers. Discharge Plan Departure Patient Disposition: Home Clinical Impression: Hernia, inguinal, left Discharge Date/Time: 05/21/19 16:24 Instructions: Groin Hernia -- Adult Activity Restrictions/Additional Instructions: Follow-up with general surgery for recheck, you may wish to have hernia repair in the future if it continues to be bothersome. You do have a small fat containing left inguinal hernia which may be causing your discomfort. There is no signs of bowel involvement at this time. Call Wednesday morning for an appointment. There was a 1 cm left adrenal nodule noted on her imaging, it may be prudent in the future to have dedicated imaging for this. Discussed with her primary care physician. You may continue with Tylenol up to a 1000 mg every hours as needed for pain. You may take ibuprofen with this medication, you may take up to 600mg every 6 hours as needed. Return to the ER for fevers greater 100.4 F, rapidly worsening pain, persistent vomiting, if you are not able to have bowel movements are only having liquidy diarrhea like bowel movements, black or bloody stools, inability urinate or other new or concerning symptoms. Prescriptions: No Action vit A and D3 in cod liver oil [cod liver oil] 1,250-135 unit capsule 1 cap PO DAILY RF: 0 multivitamin capsule 1 cap PO DAILY RF: 0 (DME) disabled parking permit Qty: 1 RF: 0 aspirin 81 MG tablet,delayed release (DR/EC) 81 mg PO QDAY Qty: 0 RF: 0 vitamin E 400 UNIT capsule 400 u PO QDAY Qty: 0 RF: 0 ascorbic acid (vitamin C) 500 MG tablet 1,000 mg PO QDAY Qty: 0 RF: 0 cholecalciferol (vitamin D3) [Vitamin D3] 1,000 UNIT tablet 1,000 unit PO QDAY Qty: 0 RF: 0 cyanocobalamin (vitamin B-12) 5,000 MCG tablet,disintegrating 2,500 mcg PO QDAY Qty: 0 RF: 0 simvastatin 20 MG tablet 20 mg PO HS Qty: 90 RF: 3 tamsulosin [Flomax] 0.4 MG capsule,extended release 24hr 0.4 mg PO QDAY Qty: 90 RF: 0 bupropion HCl [Wellbutrin SR] 150 mg tablet extended release 12 hr 150 mg PO BID Qty: 180 RF: 1 amantadine HCl 100 mg capsule 100 mg PO BID Qty: 180 RF: 3 calcium citrate-vitamin D3 [Citracal Regular] 250 mg calcium- 200 unit tablet 1 tab PO BID Qty: 90 RF: 1 docusate sodium 250 mg capsule 250 mg PO BEDTIME Qty: 90 RF: 1 calcium carbonate-vitamin D3 250-125 mg-unit tablet 1 tab PO BID Qty: 90 RF: 1 ferrous sulfate, dried [iron] 159 mg (45 mg iron) Tablet Extended Release 81 mg PO DAILY RF: 0 hydrocodone-acetaminophen 5-325 mg Tablet 1 tab PO Q4HR PRN (Reason: Pain, Moderate (4-6)) Qty: 15 RF: 0 naproxen 250 mg Tablet 500 mg PO BIDWM Qty: 60 RF: 0 Referrals: Italia Arias MD [Non-Staff] - Heather Collier DO [Primary Care Provider] - Cat Matute MD [Physician] -
[2019-05-21 14:21] LABS: Alanine Aminotransferase 52 IU/L (<50); Albumin 4.6 g/dL (3.5-5.0); Albumin Globulin Ratio 1.6 (1.0-2.8); Alkaline Phosphatase 111 U/L (38-126); Aspartate Aminotransferase 45 IU/L (17-59); BUN Creatinine Ratio 12.7 (6-22); Bilirubin Total 0.4 mg/dL (0.2-1.3); Blood Urea Nitrogen 14 mg/dL (9-20); Calcium 9.4 mg/dL (8.4-10.2); Carbon Dioxide 25 mmol/L (22-32); Chloride 105 mmol/L (98-107); Estimated Glomerular Filt Rate > 60.0 mL/min (>60); Globulin 2.9 g/dL (1.7-4.1); Glucose 74 mg/dL (80-110); HEMOLYSIS 35 (0-50); Lipase 128 U/L (23-300); Potassium 4.3 mmol/L (3.4-5.1); Sodium 140 mmol/L (137-145); Total Protein 7.5 g/dL (6.3-8.2)
--- NOTE | 2019-05-21 14:33 | DI.CT.S_ITS ---
PROCEDURE: CT ABDOMEN PELVIS W CON INDICATIONS: suprapubic pain/abdominal b/l, ? hernia L inguinal TECHNIQUE: After the administration of intravenous contrast, 5 mm thick sections acquired from the diaphragm to the symphysis. 5 mm coronal and sagittal reformats were acquired. For radiation dose reduction, the following was used: automated exposure control, adjustment of mA and/or kV according to patient size. COMPARISON: None. FINDINGS: Image quality: Excellent. ABDOMEN: Lung bases: Lung bases are clear. Heart size is normal. A moderate sized hiatal hernia. Solid organs: Low-density nodules in the liver most likely cysts. Liver is normal in size and enhancement. Gallbladder is normal. Biliary system is non dilated. Pancreas enhances normally. Spleen is normal in size and enhancement. There is a 1 cm left adrenal nodule. Kidneys demonstrate normal size and enhancement, without hydronephrosis. There left renal cortical scars. Mildly distended distal left ureter but no left uterus stones. There is a 1.1 cm indeterminate cortical nodule in the right kidney. Peritoneum and bowel: There are post surgical changes in stomach, presumably for gastric bypass. Bowel loops demonstrate normal wall thickness and caliber. There are numerous colonic diverticula. The moderate to large amount of stool in colon. No free fluid or air. Nodes and vessels: No retroperitoneal or mesenteric adenopathy by size criteria. Aorta and inferior vena cava are normal in size. Miscellaneous: ventral hernias. PELVIS: Genitourinary: Bladder is mildly distended. Bladder wall thickness is normal. Enlarged prostate. Miscellaneous: No inguinal adenopathy. Small fat containing left inguinal hernia. Bones: No suspicious bony lesions. No vertebral body compression fractures. IMPRESSION: 1. No acute inflammatory process in abdomen or pelvis. 2. Post surgical changes in stomach presumably for gastric bypass. There is a moderate-sized hiatal hernia. 3. Left renal cortical scars. No renal stones or hydronephrosis. Mildly distended distal left ureter but no left uterus stones. 4. Enlarged prostate. 5. Diverticulosis without acute diverticulitis. 6. A 1 cm left adrenal nodule. If clinically indicated, adrenal CT or MRI may be obtained. The result was discussed with Dr. Trivedi. Dictated by: Abdiaziz Cheung M.D. on 05/21/2019 at 15:21 Approved by: Abdiaziz Cheung M.D. on 05/21/2019 at 15:41
[2019-05-21] MEDS: ACETAMINOPHEN 325 MG TABLET 975 MG PO (14:42)
[2019-05-21] MEDS: SODIUM CHLORIDE 0.9% 1,000 ML 150 ML IV (14:42)
[2019-05-21 14:43] VITALS: BP 141/75; PULSE 52; RESP 14; O2SAT 100
[2019-05-21 15:22] VITALS: BP 133/80; PULSE 50; O2SAT 98
== END 2019-05-21 16:24 | disposition home or self-care (01) ==
PROVIDERS: Emergency Provider Emergency Medicine; PCP Family Medicine
DX: K40.90 Unilateral inguinal hernia, without obstruction or gangrene, not specified as recurrent (principal); R00.1 Bradycardia, unspecified
CPT/HCPCS: 36415; 74177; 80053; 81003; 83690; 85025; 85610; 85730; 93005; 96360; 99284; 99285; Q9967

== ENCOUNTER → 2021-06-03 09:53 | Outpatient (CLI) | payer OTHER, SELFPAY ==
[2021-05-12 13:06] VITALS: BMI 29.9
[2021-06-03 11:32] LABS: COVID19 -Nasal RAPID Negative (Negative)
== END ==
PROVIDERS: PCP Internal Medicine; Referring Provider Surgery; Visit Provider Surgery
DX: Z01.812 Encounter for preprocedural laboratory examination (principal); Z20.822 Contact with and (suspected) exposure to COVID-19
CPT/HCPCS: 87635; C9803

== ENCOUNTER → 2021-07-14 10:10 | Outpatient (CLI) | payer OTHER, SELFPAY ==
[2021-05-12 13:06] VITALS: BMI 29.9
[2021-07-14 11:00] LABS: COVID19 -Nasal RAPID Negative (Negative)
== END ==
PROVIDERS: PCP Internal Medicine; Visit Provider Surgery
DX: Z20.822 Contact with and (suspected) exposure to COVID-19 (principal)
CPT/HCPCS: 87635; C9803

== ENCOUNTER 2021-07-17 11:16 | Day surgery (SDC) | payer OTHER, SELFPAY ==
[2021-05-12 13:06] VITALS: BMI 29.9
[2021-06-04 14:50] VITALS: BMI 34.1
[2021-07-17] VITALS (9 sets, daily range): BP systolic 77–153; BP diastolic 49–80; PULSE 44–60; RESP 12–15; TEMP 36.1–37.1; O2SAT 91–99; BMI 34.1
[2021-07-17] MEDS: ACETAMINOPHEN 325 MG TABLET 975 MG PO (12:43)
[2021-07-17] MEDS: LACTATED RINGERS 1,000 ML 42 ML IV (12:44)
[2021-07-17] MEDS: GABAPENTIN 300 MG CAPSULE PO (12:44)
--- NOTE | 2021-07-17 14:02 | P.HP_ITS ---
History of Present Illness History of Present Illness Date Patient Seen: 07/17/21 Time Patient Seen: 14:02 Chief complaint: SDC Narrative: Lisandro is a 65-year-old man who has a painful left inguinal hernia. He has had laparoscopic gastric bypass and panniculectomy with significant lower abdominal obesity obscuring the anatomy. He has had a CT scan that would be showing hernia. Patient History Medical History (Updated 06/03/21 @ 15:22 by America Hatfield RN) Abnormal chest x-ray (1985) Anxiety Arthritis BPH (benign prostatic hyperplasia) Carpal tunnel syndrome (1998) Chronic back pain (1998) Chronic cough (2014) Constipation Dementia (2000) Depression (1974) Edema Enlarged prostate Excess skin (11/2014) Foot pain (2004) History of short term memory loss [place] (hard of [place]) HTN (hypertension) Hx of diabetes mellitus (~11/2014) Hyperlipidemia Impaired cognition Parkinson's disease (2010) PTSD (post-traumatic stress disorder) (1974) Restless leg syndrome (2004) Shoulder pain (1998) Sleep apnea (1999) Tardive dyskinesia Tremors of nervous system Type 2 diabetes mellitus Unilateral inguinal hernia Surgical History (Updated 06/03/21 @ 08:32 by Lesvia Serrano RN) History of arthroplasty of left shoulder (01/2017) History of Jeff-en-Y gastric bypass (11/2014) Hx of cervical discectomy (04/01/18) Hx of surgical procedure (07/2016) Hx of tonsillectomy Hx of vasectomy Family & Social History Family History (Updated 05/27/21 @ 10:47 by Shayla Junior RN) Father Heart disease Mother Heart disease Brother Diabetes mellitus Grandfather Heart disease Grandmother No problems noted. Grandmother No problems noted. Social History: household members spouse Tobacco & Substance use: Tobacco type pipe,cigars Smoking Status Current some day smoker alcohol intake former Substance Use Type does not use Meds Home Medications and Allergies Home Medications Medication Instructions Recorded Confirmed Type aspirin 81 mg tablet,delayed 81 mg PO QDAY #0 08/06/12 06/03/21 History release cholecalciferol (vitamin D3) 25 1,000 unit PO QDAY #0 10/13/16 06/03/21 History mcg (1,000 unit) tablet (Vitamin D3) tamsulosin 0.4 mg capsule (Flomax) 0.4 mg PO QDAY #90 cap 09/09/17 06/03/21 Rx bupropion HCl 150 mg tablet,12 hr 150 mg PO BID #180 tab 11/15/17 06/03/21 Rx sustained-release (Wellbutrin SR) disabled parking permit #1 ea 03/07/18 04/01/18 Rx multivitamin 1 cap PO DAILY 03/07/18 06/03/21 History ferrous sulfate, dried 159 mg (45 81 mg PO DAILY 04/01/18 06/03/21 History mg iron) tablet,extended release (iron ER) docusate sodium 250 mg capsule 250 mg PO BEDTIME #90 cap 05/06/18 06/03/21 Rx calcium carbonate 250 mg-vitamin 1 tab PO BID #90 tab 05/27/18 06/03/21 Rx D3 3.125 mcg (125 unit) tablet amantadine HCl 100 mg capsule 100 mg PO TID tab 05/27/21 06/03/21 History amlodipine 2.5 mg tablet 2.5 mg PO DAILY 05/27/21 06/03/21 History ascorbic acid (vitamin C) 500 mg 500 mg PO QDAY #0 tab 05/27/21 06/03/21 History tablet vitamin E (dl, acetate) 45 mg (100 45 mg PO DAILY 05/27/21 06/03/21 History unit) capsule Allergies Allergy/AdvReac Type Severity Reaction Status Date / Time Sulfa (Sulfonamide Allergy Unknown AGE 1 - Verified 05/27/21 10:29 Antibiotics) UNKNOWN REACTION Exam Vital Signs (past 8 hours): - 07/17/21 12:19 Temperature 97.7 F Oxygen Delivery Method Room Air Const General: comfortable Resp Effort & Inspection: normal respiratory effort GI Palpation: soft Other: Tender to palpation in the left inguinal area Assessment & Plan Assessment and plan (1) Hernia, inguinal, left: Status: Inactive Plan We will plan to proceed with a laparoscopic left, possible right inguinal hernia repair with mesh. He understands the risks and benefits and wishes to proceed. COVID-19 COVID-19 status: Negative Result date/Date tested (Pos, Neg/Pending): 07/16/21 Time Spent With Patient Critical Care time: I spent a total of [] minutes of critical care time on this patient's care today; this time is exclusive of procedural time.
--- NOTE | 2021-07-17 14:02 | PM.OP.1 ---
Operative Date/Time/Diagnoses Date of procedure: 07/17/21 Time of procedure: 14:02 Pre-op diagnosis: Left, possible right inguinal hernia Post-op diagnosis: same
--- NOTE | 2021-07-17 14:42 | SUR.OPER ---
Supine on padded OR bed, head on pillow, arms padded and tucked at sides, legs uncrossed, safety belt at thigh, tape over blanket over lower legs .
[2021-07-17] MEDS: CEFAZOLIN 2 GM/20 ML SYRINGE 3 GM IV (15:00)
[2021-07-17] MEDS: EPINEPHrine 1 MG/ML SUBCUT (16:00)
[2021-07-17] MEDS: LACTATED RINGERS 1,000 ML 120 ML IV (16:07)
[2021-07-17] MEDS: LIDOCAINE 1% 20 ML 14 ML INJ (16:11)
[2021-07-17] MEDS: BUPIVACAINE 0.5% (PF) VIAL 15 ML INJ (16:13)
--- NOTE | 2021-07-17 16:22 | PM.OP.1 ---
Operative Date/Time/Diagnoses Date of procedure: 07/17/21 Time of procedure: 16:22 Pre-op diagnosis: Left inguinal hernia Post-op diagnosis: same Procedure & Clinicians Procedure: Laparoscopic left inguinal hernia repair with mesh Same procedure as scheduled: Yes Indications: Left inguinal hernia Surgeon: Nilson Xiong Click Yes if Unassisted: Yes Anesthesia Type: General Operative Notes Findings: Indirect hernia with a cord lipoma Estimated Blood Loss (mL): 22 Procedure in detail: The patient was given preoperative antibiotics. The patient was brought to the operating room, placed on the table in the supine position with the arms tucked and general anesthesia was induced. The abdomen was prepped and draped in the usual fashion. A time-out was performed. A 1 cm curvilinear infraumbilical incision was created about 5 cm above the umbilicus and dissection was carried down to the fascia. The fascia was scored with cautery and the superior leaf of the anterior sheath was grasped with a Ezra clamp to elevate the abdominal wall. In 0 Vicryl stay stitch was placed and tagged. A Peon clamp was used to esteves the peritoneum. The Diamante port was placed and the abdomen was insufflated to 15 mmHg. The camera was inserted, there was no evidence of any injury from the entry. 5 mm ports were placed under direct vision in the mid left and mid right abdomen. The patient was positioned in steep Trendelenburg. We created left peritoneal flap. The peritoneum was dissected from the left myopectineal orifice and the Ted's ligament was exposed. There was a indirect defect containing a fatty cord lipoma. There was no direct or femoral defect. A a medium left Bard mesh was brought in and placed over the defect with the medial edge against Ted's ligament. We then closed the peritoneal flap with a running 3-0 barbed suture. We took one last look around the abdomen and saw no other abnormalities. The suture was removed and accounted for. The 5 mm ports were removed under direct vision. The abdomen was desufflated. The Diamante port was removed. Additional local was injected into the fascia and the supraumbilical incision was closed with the existing 0 Vicryl suture in addition to another interrupted 0 Vicryl suture. The skin incisions were closed with 4 Monocryl, Steri-Strips and Band-Aids. Post-operative Condition: stable Disposition: PACU
[2021-07-17] MEDS: OXYCODONE IR 5 MG TABLET PO (16:57)
== END 2021-07-17 17:29 | disposition home or self-care (01) ==
PROVIDERS: PCP Internal Medicine; Referring Provider Surgery; Visit Provider Surgery
PROC: 0YQ64ZZ Repair Left Inguinal Region, Percutaneous Endoscopic Approach (ICD-10-PCS; CPT 49650; principal; 2021-07-17 13:15)
DX: K40.90 Unilateral inguinal hernia, without obstruction or gangrene, not specified as recurrent (principal); G20 Parkinson's disease; I10 Essential (primary) hypertension; F43.10 Post-traumatic stress disorder, unspecified; F41.9 Anxiety disorder, unspecified; E66.9 Obesity, unspecified; Z68.34 Body mass index [BMI] 34.0-34.9, adult
CPT/HCPCS: 49650; J0171; J0330; J0690; J1100; J1885; J2405; J2704

== ENCOUNTER → 2021-08-04 09:04 | Outpatient (CLI) | payer OTHER, SELFPAY ==
[2021-05-12 13:06] VITALS: BMI 29.9
[2021-08-04 11:48] LABS: COVID19 -Nasal RAPID Negative (Negative)
== END ==
PROVIDERS: PCP Internal Medicine; Visit Provider Surgery
DX: Z01.812 Encounter for preprocedural laboratory examination (principal); Z20.822 Contact with and (suspected) exposure to COVID-19
CPT/HCPCS: 87635; C9803

== ENCOUNTER 2021-08-05 06:16 | Day surgery (SDC) | payer OTHER, SELFPAY ==
[2021-05-12 13:06] VITALS: BMI 29.9
[2021-08-04 09:22] VITALS: BMI 34.1
[2021-08-05] VITALS (8 sets, daily range): BP systolic 124–148; BP diastolic 66–88; PULSE 59–67; RESP 10–18; TEMP 36.4–37.1; O2SAT 95–98; BMI 34.1
--- NOTE | 2021-08-05 | PATH_ITS ---
[facility] Accession Number: [id number] . 01 Material submitted: . inguinal area - LEFT INGUINAL NODULE . 01 Diagnosis: Left Inguinal, Excision: Epidermal disruption with underlying inflamed granulation tissue, fibrosis, and scattered multinucleated foreign body giant cell reaction to keratin flakes, most suggestive of changes in the vicinity of a previously ruptured keratinous cyst or folliculitis; see comment. MRV 08/13/2021 1254 Local . 01 Comment: The findings are not entirely specific; however, they appear reactive in nature, and are favored to represent changes in the vicinity of a previously ruptured keratinous cyst or folliculitis. A PAS fungal and AFB stains are performed on block A1 and are negative for microorganisms. Clinical correlation is recommended. . 01 Electronically signed: . Randy Sanchez MD, Dermatopathologist NPI- [id number] . 01 Gross description: . Received in formalin, labeled with the patient's name and designated 1. Left inguinal nodule is a 5.0 x 3.0 x 2.5 cm portion of disrupted, partially encapsulated yellow lobulated adipose tissue with an overlying 3.5 x 1.7 cm ramos wrinkled disrupted and unremarkable skin ellipse. The margin is inked black. Sectioning reveals a yellow lobulated cut surface that is focally fibrotic and hemorrhagic underlying the disrupted skin. No discrete mass or other lesions are identified. [employer] sections are submitted in A1-A3. ([id number]) /MRV 08/07/2021 1236 Local . 01 Pathologist provided ICD-10: R23.9 . 01 CPT . 215508, 227900, 302196 Specimen Comment: A courtesy copy of this report has been sent to [phone] Performed at: 01 [facility] [address], [place], [place] [id number] MD Flaco Vargas MD Phone: [phone]
[2021-08-05] MEDS: LACTATED RINGERS 1,000 ML 42 ML IV (07:32)
--- NOTE | 2021-08-05 07:47 | SUR.PREOP ---
08/05/21-0740+Ready for OR . Awaiting Dr Xiong to come see.
--- NOTE | 2021-08-05 07:51 | PM.PREOP ---
Pre-operative Note COVID-19 COVID-19 status: Negative Result date/Date tested (Pos, Neg/Pending): 08/04/21 Interval Note History & Physical reviewed/Exam performed by Physician: Yes Changes to H&P: No ASA Class (for procedural sedation): II
--- NOTE | 2021-08-05 08:16 | SUR.OPER ---
Supine on padded OR bed, head on pillow, arms secured on padded arm boards at <90 degrees abduction, legs uncrossed, safety belt at thigh, tape over blanket over lower legs.
[2021-08-05] MEDS: LIDOCAINE 1% W/EPI 20 ML INJ (08:21)
[2021-08-05] MEDS: CEFAZOLIN 2 GM/20 ML SYRINGE IV (08:21)
[2021-08-05] MEDS: BUPIVACAINE 0.5% (PF) VIAL 30 ML INJ (08:22)
--- NOTE | 2021-08-05 08:57 | PM.OP.1 ---
Operative Date/Time/Diagnoses Date of procedure: 08/05/21 Time of procedure: 08:58 Pre-op diagnosis: Left inguinal pain Post-op diagnosis: same Procedure & Clinicians Procedure: Excisional biopsy of left subcutaneous nodule Same procedure as scheduled: Yes Surgeon: Nilson Xiong Anesthesia Type: General Operative Notes Procedure in detail: The patient was brought to the operating room, placed on the table in the supine position and general anesthesia was induced via LMA. Antibiotics were administered. The left groin was prepped and draped in the usual fashion. A time-out was performed. A 6 cm incision was made over the palpable nodule. The subcutaneous adipose tissue appeared discolored and the tissue was abnormal indicating a possible chronic granuloma. Some clear fluid was suctioned from the field. There was no lacy purulent drainage. A decision was made to create an elliptical incision to remove a portion of the overlying skin. The excision was taken down to normal appearing subcutaneous adipose tissue. Next, the wound was closed in layers using interrupted 3-0 Vicryl sutures in the subcutaneous adipose tissue and dermis followed by running 4 Monocryl subcuticular closure. Steri-Strips and a Tegaderm were applied. Post-operative Condition: stable Disposition: PACU
[2021-08-05] MEDS: OXYCODONE IR 5 MG TABLET PO (09:44)
== END 2021-08-05 09:49 | disposition home or self-care (01) ==
PROVIDERS: PCP Internal Medicine; Referring Provider Surgery; Visit Provider Surgery
PROC: (CPT 11406; principal; 2021-08-05 07:45)
DX: L92.9 Granulomatous disorder of the skin and subcutaneous tissue, unspecified (principal); F17.210 Nicotine dependence, cigarettes, uncomplicated; G20 Parkinson's disease; I10 Essential (primary) hypertension; E11.9 Type 2 diabetes mellitus without complications; F32.9 Major depressive disorder, single episode, unspecified; F03.90 Unspecified dementia, unspecified severity, without behavioral disturbance, psychotic disturbance, mood disturbance, and anxiety
CPT/HCPCS: 11406; 12032; 82962; J0690; J2704; J3010

== ENCOUNTER 2022-12-18 12:47 | Emergency (ER) | payer OTHER, SELFPAY ==
[2021-05-12 13:06] VITALS: BMI 29.9
[2022-12-18] VITALS (17 sets, daily range): BP systolic 140–173; BP diastolic 69–82; PULSE 61–83; RESP 13–29; TEMP 36.7; O2SAT 94–99
--- NOTE | 2022-12-18 12:52 | DI.RAD.S_ITS ---
PROCEDURE: XR CHEST 1V INDICATIONS: chest pain TECHNIQUE: One view of the chest was acquired. COMPARISON: [facility], CHEST 1 VIEW, 12/31/2014, 7:25. [facility], CHEST 1 VIEW, 08/06/2012, 19:11. FINDINGS: Surgical changes and devices: Probable ACDF of the lower cervical spine (versus external foreign body) and left shoulder arthroplasty. Lungs and pleura: Lungs are clear. No pleural effusions or pneumothorax. Mediastinum: Mediastinal contours appear normal. Heart size is normal. Bones and chest wall: No suspicious bony lesions. Overlying soft tissues appear unremarkable. IMPRESSION: No acute cardiopulmonary process. Dictated by: Carlos Martinez M.D. on 12/18/2022 at 13:22 Approved by: Carlos Martinez M.D. on 12/18/2022 at 13:23
[2022-12-18 13:23] LABS: Add Manual Diff / Slide Review NO; Basophils Absolute Auto 100 /uL (0-100); Basophils Percent Auto 0.7 % (0-2); Eosinophils Absolute Auto 100 /uL (0-450); Eosinophils Percent Auto 0.7 % (2-4); Hematocrit 41.3 % (41-53); Hemoglobin 13.9 g/dL (13.5-17.5); Lymphocytes Absolute Auto 1100 /uL (1100-4500); Lymphocytes Percent Auto 8.7 % (25-40); Mean Corpuscular HGB Conc 33.6 % (30-36); Mean Corpuscular Hemoglobin 29.2 PG (26-34); Mean Corpuscular Volume 86.8 fL (80-100); Monocytes Absolute Auto 900 /uL (0-900); Monocytes Percent Auto 6.8 % (3-14); Neutrophils Absolute Auto 10800 /uL (1500-7000); Neutrophils Percent Auto 83.1 % (50-75); Platelet Count 304 X10^3/uL (150-400); Red Blood Cell Count 4.76 X10^6/uL (4.5-5.9); Red Cell Distribution Width 14.5 % (11.6-14.8)
[2022-12-18 13:31] LABS: D Dimer 464 ng/ml (<500)
[2022-12-18 13:32] LABS: Alanine Aminotransferase 34 IU/L (<50); Albumin 4.4 g/dL (3.5-5.0); Albumin Globulin Ratio 1.5 (1.0-2.8); Alkaline Phosphatase 144 U/L (38-126); Aspartate Aminotransferase 34 IU/L (17-59); BUN Creatinine Ratio 16.7 (6-22); Bilirubin Total 0.5 mg/dL (0.2-1.3); Blood Urea Nitrogen 16 mg/dL (9-20); Calcium 8.7 mg/dL (8.4-10.2); Carbon Dioxide 25 mmol/L (22-32); Chloride 105 mmol/L (98-107); Creatine Kinase 78 U/L (55-170); Estimated Glomerular Filt Rate > 60 mL/min (>60); Glucose 116 mg/dL (80-110); HEMOLYSIS 19 (0-50); Lipase 85 U/L (23-300); Potassium 3.1 mmol/L (3.4-5.1); Sodium 140 mmol/L (137-145); Total Protein 7.4 g/dL (6.3-8.2)
[2022-12-18] MEDS: SODIUM CHLORIDE 0.9% 1,000 ML 150 ML IV (13:33)
[2022-12-18 13:36] LABS: C-Reactive Protein Quant < 0.5 mg/dL (<1.0)
[2022-12-18 13:44] LABS: Troponin I < 0.012 ng/mL (0.01-0.034)
[2022-12-18 13:51] LABS: Erythrocyte Sedimentation Rate 10 MM/HR (0-15)
--- NOTE | 2022-12-18 14:16 | DI.CT.S_ITS ---
PROCEDURE: CT CHEST ABD PEL W CON INDICATIONS: severe upper abdomen / chest pain, hx gastric bypass TECHNIQUE: After the administration of intravenous contrast, 5 mm thick sections acquired from the lung apices to the symphysis. 5 mm coronal and sagittal reformats were performed, with additional 7 mm MIP reformats through the lungs. For radiation dose reduction, the following was used: automated exposure control, adjustment of mA and/or kV according to patient size. COMPARISON: None. FINDINGS: Image quality: Excellent. CHEST: Lungs and pleura: No acute airspace opacities. No pleural effusions or pneumothorax. Central and peripheral airways appear patent and normal in caliber. Mediastinum: Heart size is enlarged with moderate coronary calcifications for age. No pericardial effusion. No mediastinal or hilar adenopathy by size criteria. Thoracic aorta and central pulmonary arteries are normal in size. Mild esophageal wall thickening, with small hiatal hernia. Prominent number of periesophageal lymph nodes, which are not enlarged. Chest wall: No axillary or supraclavicular adenopathy by size criteria. Thyroid gland is unremarkable . ABDOMEN: Liver: Fluid attenuating cyst in segment 2. Additional subcentimeter hypoattenuating lesion segment 4A, too small to characterize by CT. Gallbladder and biliary tree: No gallstones or biliary dilation. Spleen: Normal size. Pancreas: No ductal dilation. Adrenal glands: No adrenal nodules. Kidneys: No hydronephrosis. No solid mass. No complex renal cysts which requires follow-up. Small burden of punctate, nonobstructing left-sided nephrolithiasis. Peritoneum and bowel: Bowel loops demonstrate normal wall thickness and caliber. No free fluid or air. Colonic diverticulosis without evidence of diverticulitis. Fecal debris within the small bowel. Gastric bypass. Nodes and vessels: No retroperitoneal or mesenteric adenopathy by size criteria. Aorta and inferior vena cava are normal in size. Miscellaneous: No ventral hernias. PELVIS: Genitourinary: Bladder wall thickness is normal. Miscellaneous: No inguinal hernias or adenopathy. Bones: No suspicious bony lesions. No vertebral body compression fractures. IMPRESSION: Mild distal esophageal wall thickening, probably esophagitis in the setting of a small hiatal hernia. Prominent number of periesophageal lymph nodes, which are not enlarged and likely reactive. Colonic diverticulosis without evidence of diverticulitis. Fecal debris within the small-bowel, usually indicating small intestinal bacterial overgrowth versus slow transit. Small burden of punctate, nonobstructing left-sided nephrolithiasis. Dictated by: Carlos Martinez M.D. on 12/18/2022 at 15:00 Approved by: Carlos Martinez M.D. on 12/18/2022 at 15:06
--- NOTE | 2022-12-18 14:17 | ED.CHESTPAIN ---
HPI - Chest Pain General Chief Complaint: Chest Pain Stated Complaint: CHEST PAIN Time Seen by Provider: 12/18/22 12:52 Source: patient and family Mode of arrival: Ambulatory Limitations: no limitations History of Present Illness HPI narrative: 67-year-old male daily smoker with history of type 2 diabetes, tardive dyskinesia, history of Jeff-en-Y gastric bypass presents with a chief complaint of a relatively sudden onset epigastric and central chest pain that woke him from sleep a few hours prior to arrival. He states he went to bed in his normal state of health and has not been ill, denies any fever or chills. He states his pain is stabbing and 9 in nature, it is made worse by leaning forward but has no exertional component. He does state that it does radiate to his back. He denies any associated symptoms such as dizziness, weakness or lightheadedness. He has no vomiting or unexplained diaphoresis. He denies any recent trauma or injury. He denies any history of the same. Related Data Home Medications Medication Instructions Recorded Confirmed aspirin 81 mg tablet,delayed 81 mg PO QDAY ##0 08/06/12 08/25/21 release cholecalciferol (vitamin D3) 25 1,000 unit PO QDAY ##0 10/13/16 08/25/21 mcg (1,000 unit) tablet (Vitamin D3) multivitamin 1 cap PO DAILY 03/07/18 08/25/21 ferrous sulfate, dried 159 mg (45 81 mg PO DAILY 04/01/18 08/25/21 mg iron) tablet,extended release (iron ER) amlodipine 2.5 mg tablet 2.5 mg PO DAILY 05/27/21 08/25/21 ascorbic acid (vitamin C) 500 mg 500 mg PO QDAY #0 tabs 05/27/21 08/25/21 tablet vitamin E (dl, acetate) 45 mg (100 45 mg PO DAILY 05/27/21 08/25/21 unit) capsule bisacodyl 5 mg tablet,delayed 10 mg PO DAILY 08/05/21 08/25/21 release Previous Rx's Medication Instructions Recorded tamsulosin 0.4 mg capsule (Flomax) 0.4 mg PO QDAY #90 caps 09/09/17 bupropion HCl 150 mg tablet,12 hr 150 mg PO BID #180 tabs 11/15/17 sustained-release (Wellbutrin SR) disabled parking permit #1 ea 03/07/18 docusate sodium 250 mg capsule 250 mg PO BEDTIME #90 caps 05/06/18 calcium carbonate 250 mg-vitamin 1 tab PO BID #90 tabs 05/27/18 D3 3.125 mcg (125 unit) tablet pantoprazole 40 mg tablet,delayed 40 mg PO DAILY #30 tabs 12/18/22 release (Protonix) Allergies Allergy/AdvReac Type Severity Reaction Status Date / Time Sulfa (Sulfonamide Allergy Unknown AGE 1 - Verified 08/25/21 09:17 Antibiotics) UNKNOWN REACTION Review of Systems Review of Systems Narrative: GENERAL: Denies chills, fatigue, malaise, fever, sweats. HEENT: Denies sinus pain, ear pain, sore throat, difficulty swallowing, dizziness. RESPIRATORY: Denies dyspnea, cough, wheezing, hemoptysis, sputum. CARDIOVASCULAR: See HPI GASTROINTESTINAL: See HPI : Denies dysuria, frequency, incontinence, hematuria, urinary retention. MUSCULOSKELETAL: denies weakness, joint pain, or bony pain SKIN: Denies rash, skin lesions, or other NEUROLOGIC: Denies weakness, headache, numbness, change in speech, confusion, seizures, incoordination. PSYCHIATRIC: No concerning psychosocial issues. 12 point review of systems is negative except for those stated above Patient History Medical History Abnormal chest x-ray (1985) Anxiety Arthritis BPH (benign prostatic hyperplasia) Carpal tunnel syndrome (1998) Chronic back pain (1998) Chronic cough (2014) Constipation Dementia (2000) Depression (1974) Edema Enlarged prostate Excess skin (11/2014) Foot pain (2004) History of short term memory loss [place] (hard of hearing) HTN (hypertension) Hx of diabetes mellitus (~11/2014) Hyperlipidemia Impaired cognition Parkinson's disease (2010) PTSD (post-traumatic stress disorder) (1974) Restless leg syndrome (2004) Shoulder pain (1998) Sleep apnea (1999) Tardive dyskinesia Tremors of nervous system Type 2 diabetes mellitus Unilateral inguinal hernia Surgical History History of arthroplasty of left shoulder (01/2017) History of Jeff-en-Y gastric bypass (11/2014) Hx of cervical discectomy (04/01/18) Hx of surgical procedure (07/2016) Hx of tonsillectomy Hx of vasectomy Family History Father Heart disease Mother Heart disease Brother Diabetes mellitus Grandfather Heart disease Grandmother No problems noted. Grandmother No problems noted. Social History household members: spouse Smoking Status: Current some day smoker Tobacco: How many years used: 40 alcohol intake: former substance use type: does not use Smoking Status: Current some day smoker tobacco type: pipe alcohol intake frequency: 0-2 drinks per day Substance Use Type: does not use Exam Narrative Exam Narrative: GENERAL: [67] year old patient appears stated age. Well-developed patient, in mild distress. HEAD: Atraumatic. Normocephalic. EYES: Pupils equal round and reactive. Extraocular motions intact. No scleral icterus. No injection or drainage. ENT: Nose without bleeding, purulent drainage. Throat without erythema, tonsillar hypertrophy or exudate. Airway patent. NECK: Trachea midline. Non tender CARDIOVASCULAR: Regular rate and rhythm without murmurs, gallops, or rubs. RESPIRATORY: Clear to auscultation. Breath sounds equal bilaterally. No wheezes, rales, or rhonchi. GASTROINTESTINAL: Abdomen soft, reproducible epigastric pain, bowel sounds present in all 4 quadrants, nondistended. EXTREMITIES: No edema or joint tenderness. BACK: Nontender without deformity or crepitance. No flank tenderness. NEURO: AOx3. SKIN: No rash or erythema of visible areas Initial Vital Signs Initial Vital Signs: Vital Signs Pulse Rate 83 12/18/22 12:53 Pulse Oximetry 98 12/18/22 12:53 Course Orders Ordered: Discontinued Medications Aspirin (Aspirin 81 Mg Chew Tab) 324 mg PO NOW ONE Stop: 12/18/22 12:53 Last Admin: 12/18/22 13:21 Dose: Not Given Documented By: KLS Sodium Chloride (Normal Saline 0.9%) 1,000 mls @ 150 mls/hr IV CONT TANIKA Last Infusion: 12/18/22 17:46 Dose: 0 mls/hr Documented By: Admin: 12/18/22 13:33 Dose: 150 mls/hr Documented By: ST Vital Signs Vital signs: Vital Signs - 8 hr 12/18/22 12:55 12/18/22 12:53 12/18/22 12:54 Temperature 98.1 F Pulse Rate 76 83 Respiratory Rate 16 Blood Pressure 160/82 H 160/82 H Pulse Oximetry 99 98 Oxygen Delivery Method Room Air 12/18/22 12:54 12/18/22 13:00 12/18/22 13:19 Temperature Pulse Rate 81 76 Respiratory Rate 29 H 18 Blood Pressure 149/76 H Pulse Oximetry 99 97 Oxygen Delivery Method 12/18/22 13:19 Temperature Pulse Rate 70 Respiratory Rate 18 Blood Pressure Pulse Oximetry 99 Oxygen Delivery Method MDM - Chest Pain Lab Data 12/18/22 13:15 12/18/22 13:15 Labs: Lab Results 12/18/22 12/18/22 12/18/22 Range/Units 13:15 13:15 13:15 WBC 13.0 H (4.5-11.0) X10^3/uL RBC 4.76 (4.5-5.9) X10^6/uL Hgb 13.9 (13.5-17.5) g/dL Hct 41.3 (41-53) % MCV 86.8 (80-100) fL MCH 29.2 (26-34) PG MCHC 33.6 (30-36) % RDW 14.5 (11.6-14.8) % Plt Count 304 (150-400) X10^3/uL Neut % (Auto) 83.1 H (50-75) % Lymph % (Auto) 8.7 L (25-40) % Mckinley % (Auto) 6.8 (3-14) % Eos % (Auto) 0.7 L (2-4) % Baso % (Auto) 0.7 (0-2) % Neut # (Auto) 89017 H (7069-5695) /uL Lymph # (Auto) 1100 (5345-7636) /uL Mckinley # (Auto) 900 (0-900) /uL Eos # (Auto) 100 (0-450) /uL Baso # (Auto) 100 (0-100) /uL ESR 10 (0-15) MM/HR D-Dimer (<500) ng/ml Sodium 140 (137-145) mmol/L Potassium 3.1 L (3.4-5.1) mmol/L Chloride 105 (98-107) mmol/L Carbon Dioxide 25 (22-32) mmol/L BUN 16 (9-20) mg/dL Creatinine 0.96 (0.66-1.25) mg/dL Estimated GFR > 60 (>60) mL/min BUN/Creatinine Ratio 16.7 (6-22) Glucose 116 H (80-110) mg/dL Calcium 8.7 (8.4-10.2) mg/dL Total Bilirubin 0.5 (0.2-1.3) mg/dL AST 34 (17-59) IU/L ALT 34 (<50) IU/L Alkaline Phosphatase 144 H (38-126) U/L Total Creatine Kinase 78 (55-170) U/L Troponin I < 0.012 (0.01-0.034) ng/mL C-Reactive Protein (<1.0) mg/dL Total Protein 7.4 (6.3-8.2) g/dL Albumin 4.4 (3.5-5.0) g/dL Globulin 3.0 (1.7-4.1) g/dL Albumin/Globulin Ratio 1.5 (1.0-2.8) Lipase 85 (23-300) U/L SARS-CoV-2 (PCR) (Negative) Influenza A (RT-PCR) (NEGATIVE) Influenza B (RT-PCR) (NEGATIVE) RSV (PCR) (Negative) 12/18/22 12/18/22 12/18/22 Range/Units 13:15 13:15 13:22 WBC (4.5-11.0) X10^3/uL RBC (4.5-5.9) X10^6/uL Hgb (13.5-17.5) g/dL Hct (41-53) % MCV (80-100) fL MCH (26-34) PG MCHC (30-36) % RDW (11.6-14.8) % Plt Count (150-400) X10^3/uL Neut % (Auto) (50-75) % Lymph % (Auto) (25-40) % Mckinley % (Auto) (3-14) % Eos % (Auto) (2-4) % Baso % (Auto) (0-2) % Neut # (Auto) (5777-5834) /uL Lymph # (Auto) (1691-0720) /uL Mckinley # (Auto) (0-900) /uL Eos # (Auto) (0-450) /uL Baso # (Auto) (0-100) /uL ESR (0-15) MM/HR D-Dimer 464 (<500) ng/ml Sodium (137-145) mmol/L Potassium (3.4-5.1) mmol/L Chloride (98-107) mmol/L Carbon Dioxide (22-32) mmol/L BUN (9-20) mg/dL Creatinine (0.66-1.25) mg/dL Estimated GFR (>60) mL/min BUN/Creatinine Ratio (6-22) Glucose (80-110) mg/dL Calcium (8.4-10.2) mg/dL Total Bilirubin (0.2-1.3) mg/dL AST (17-59) IU/L ALT (<50) IU/L Alkaline Phosphatase (38-126) U/L Total Creatine Kinase (55-170) U/L Troponin I (0.01-0.034) ng/mL C-Reactive Protein < 0.5 (<1.0) mg/dL Total Protein (6.3-8.2) g/dL Albumin (3.5-5.0) g/dL Globulin (1.7-4.1) g/dL Albumin/Globulin Ratio (1.0-2.8) Lipase (23-300) U/L SARS-CoV-2 (PCR) Negative (Negative) Influenza A (RT-PCR) Flu a negative (NEGATIVE) Influenza B (RT-PCR) Flu b negative (NEGATIVE) RSV (PCR) Negative (Negative) 12/18/22 Range/Units 16:50 WBC (4.5-11.0) X10^3/uL RBC (4.5-5.9) X10^6/uL Hgb (13.5-17.5) g/dL Hct (41-53) % MCV (80-100) fL MCH (26-34) PG MCHC (30-36) % RDW (11.6-14.8) % Plt Count (150-400) X10^3/uL Neut % (Auto) (50-75) % Lymph % (Auto) (25-40) % Mckinley % (Auto) (3-14) % Eos % (Auto) (2-4) % Baso % (Auto) (0-2) % Neut # (Auto) (0705-9030) /uL Lymph # (Auto) (1866-1641) /uL Mckinley # (Auto) (0-900) /uL Eos # (Auto) (0-450) /uL Baso # (Auto) (0-100) /uL ESR (0-15) MM/HR D-Dimer (<500) ng/ml Sodium (137-145) mmol/L Potassium (3.4-5.1) mmol/L Chloride (98-107) mmol/L Carbon Dioxide (22-32) mmol/L BUN (9-20) mg/dL Creatinine (0.66-1.25) mg/dL Estimated GFR (>60) mL/min BUN/Creatinine Ratio (6-22) Glucose (80-110) mg/dL Calcium (8.4-10.2) mg/dL Total Bilirubin (0.2-1.3) mg/dL AST (17-59) IU/L ALT (<50) IU/L Alkaline Phosphatase (38-126) U/L Total Creatine Kinase 67 (55-170) U/L Troponin I < 0.012 (0.01-0.034) ng/mL C-Reactive Protein (<1.0) mg/dL Total Protein (6.3-8.2) g/dL Albumin (3.5-5.0) g/dL Globulin (1.7-4.1) g/dL Albumin/Globulin Ratio (1.0-2.8) Lipase (23-300) U/L SARS-CoV-2 (PCR) (Negative) Influenza A (RT-PCR) (NEGATIVE) Influenza B (RT-PCR) (NEGATIVE) RSV (PCR) (Negative) [facility] Narrative Medical decision making narrative: CC: 67-year-old male with epigastric pain Complicating co-morbidities: Age, hypertension, hyperlipidemia, gastric bypass Data collected from: Patient Medical records reviewed: Prior notes reviewed in our EMR Differential considered, but not limited to: Bowel obstruction versus pancreatitis versus esophagitis versus cardiac ischemia versus pulmonary embolism versus other Exam documented above, pertinent findings include: Epigastric pain, heart rate regular, lungs clear Lab Test results independently reviewed as above. Pertinent findings: Subtle leukocytosis of 13,000 with relative left shift, no signs of anemia, D-dimer 464, potassium slightly decreased at 3.1, other electrolytes within normal, renal function normal, troponin x2 negative, LFTs including lipase within normal Independently reviewed EKG as above Imaging studies independently reviewed: Chest abdomen and pelvic CT with IV contrast demonstrates mild distal esophageal wall thickening, most consistent with esophagitis Treatments: Aspirin and saline Re-evaluations: Patient feeling significant improvement over the course of the visit Discussion: Patient with epigastric pain seems to be worse when he sits forward, improved with above-stated therapies, multiple diagnoses considered as noted above including bowel obstruction, pancreatitis, gallbladder disease which all seem unlikely given labs and imaging. Cardiac ischemia considered but thought unlikely given lack of exertional symptoms, other cardiac equivalent, troponin negative x2, no occlusive or dynamic changes on EKG. Pulmonary embolism considered but thought unlikely given D-dimer well below age corrected cutoff. Disposition: see below, along with detailed discharge instructions that have been reviewed with patient as well as indications for ED re-evaluation and additional outpatient follow up Discharge Plan Departure Patient Disposition: Home Clinical Impression: Abdominal pain, epigastric Instructions: DI for Epigastric Pain Activity Restrictions/Additional Instructions: *You have been diagnosed with [abdominal pain] * As we discussed your history and physical exam as well as labs and imaging are very reassuring. There is no evidence of any severe diagnoses that would require a specific or immediate intervention. *What to do: *Please continue to take your regular medications as directed. [x ] New medication prescriptions sent to your pharmacy: [ [facility]] *Please follow up with your primary care provider in 2-3 days, call for an appointment. Let them know you were seen in the Emergency Department and that we ask that you be seen in follow up. We will electronically transmit a record of today's note if your PCP is in our system *Please consider a clear liquid diet for the next 24-48 hours and then slowly advance to regular as tolerated. Also, try to avoid alcohol, nicotine, caffeine, spicy, acidic or fatty foods as this may worsen your symptoms *If you do not have a primary care provider please contact the [facility] Resource line at [phone]. They will ask some questions about your medical history and help get you set up with a doctor in the community. *Return to Emergency Department if you should have any new, worsening or concerning symptoms, such as [fever greater than 101 F, shaking chills, worsening pain, persistent vomiting or other bothersome symptoms] Prescriptions: New pantoprazole [Protonix] 40 mg tablet,delayed release (DR/EC) 40 mg PO DAILY Qty: 30 0RF No Action multivitamin capsule 1 cap PO DAILY (DME) disabled parking permit Qty: 1 0RF Dose Instruction: As directed Rx Instructions: patient unable to walk more than 200 feet without stopping. aspirin 81 MG tablet,delayed release (DR/EC) 81 mg PO QDAY Qty: 0 cholecalciferol (vitamin D3) [Vitamin D3] 1,000 UNIT tablet 1,000 unit PO QDAY Qty: 0 tamsulosin [Flomax] 0.4 MG capsule,extended release 24hr 0.4 mg PO QDAY Qty: 90 0RF bupropion HCl [Wellbutrin SR] 150 mg tablet extended release 12 hr 150 mg PO BID Qty: 180 1RF docusate sodium 250 mg capsule 250 mg PO BEDTIME Qty: 90 1RF calcium carbonate-vitamin D3 250-125 mg-unit tablet 1 tab PO BID Qty: 90 1RF ascorbic acid (vitamin C) 500 mg tablet 500 mg PO QDAY Qty: 0 amlodipine 2.5 mg tablet 2.5 mg PO DAILY vitamin E (dl, acetate) 45 mg (100 unit) capsule 45 mg PO DAILY bisacodyl 5 mg Tablet,Delayed Release (Dr/Ec) 10 mg PO DAILY iron 159 mg (45 mg iron) Tablet Extended Release 81 mg PO DAILY Referrals: Italia Arias MD [Primary Care Provider] - Stand Alone Forms: Patient Portal/API
[2022-12-18 14:42] LABS: COVID-19 CEPHEID 4-PLEX PCR Negative (Negative); Influenza A - CEPHEID Flu A NEGATIVE (NEGATIVE); Influenza B - CEPHEID Flu B NEGATIVE (NEGATIVE); Respiratory Syncytial Virus Negative (Negative)
[2022-12-18 17:15] LABS: Creatine Kinase 67 U/L (55-170)
[2022-12-18 17:27] LABS: Troponin I < 0.012 ng/mL (0.01-0.034)
== END 2022-12-18 17:47 | disposition home or self-care (01) ==
PROVIDERS: Nurse Practitioner Critical Care Medicine; Emergency Provider Emergency Medicine; PCP Internal Medicine
DX: R10.13 Epigastric pain (principal); R07.9 Chest pain, unspecified; Z20.822 Contact with and (suspected) exposure to COVID-19
CPT/HCPCS: 0241U; 36415; 71045; 71260; 74177; 80053; 82550; 83690; 84484; 85025; 85379; 85651; 86140; 93005; 99284

== ENCOUNTER → 2024-01-29 09:23 | Outpatient (CLI) | payer OTHER, SELFPAY ==
[2021-05-12 13:06] VITALS: BMI 29.9
[2024-01-29 10:20] LABS: Add Manual Diff / Slide Review NO; Basophils Absolute Auto 100 /uL (0-100); Basophils Percent Auto 1.3 % (0-2); Eosinophils Absolute Auto 100 /uL (0-450); Eosinophils Percent Auto 2.1 % (2-4); Hematocrit 39.9 % (41-53); Hemoglobin 13.5 g/dL (13.5-17.5); Lymphocytes Absolute Auto 1500 /uL (1100-4500); Lymphocytes Percent Auto 22.8 % (25-40); Mean Corpuscular HGB Conc 33.9 % (30-36); Mean Corpuscular Volume 85.6 fL (80-100); Monocytes Absolute Auto 500 /uL (0-900); Monocytes Percent Auto 7.8 % (3-14); Neutrophils Absolute Auto 4300 /uL (1500-7000); Platelet Count 363 X10^3/uL (150-400); Red Blood Cell Count 4.66 X10^6/uL (4.5-5.9); Red Cell Distribution Width 14.3 % (11.6-14.8); White Blood Cell Count 6.5 X10^3/uL (4.5-11.0)
[2024-01-29 10:32] LABS: Hemoglobin A1C% w Est Avg Glu 5.4 % (4.0-6.0)
[2024-01-29 10:44] LABS: Alanine Aminotransferase 24 IU/L (<50); Albumin 4.1 g/dL (3.5-5.0); Albumin Globulin Ratio 1.5 (1.0-2.8); Alkaline Phosphatase 145 U/L (38-126); Aspartate Aminotransferase 27 IU/L (17-59); BUN Creatinine Ratio 11.9 (6-22); Bilirubin Total 0.5 mg/dL (0.2-1.3); Blood Urea Nitrogen 12 mg/dL (9-20); Calcium 8.8 mg/dL (8.4-10.2); Carbon Dioxide 24 mmol/L (22-32); Chloride 110 mmol/L (98-107); Cholesterol 191 mg/dL (140-199); Estimated Glomerular Filt Rate > 60 mL/min (>60); Globulin 2.7 g/dL (1.7-4.1); Glucose 101 mg/dL (80-110); HDL Cholesterol 44 mg/dL (40-60); HEMOLYSIS < 15 (0-50); LDL Cholesterol Calculated 123 mg/dL (<100); Potassium 3.1 mmol/L (3.4-5.1); Sodium 141 mmol/L (137-145); Total Protein 6.8 g/dL (6.3-8.2); Triglycerides 119 mg/dL (35-150)
[2024-01-29 11:02] LABS: Vitamin D 25 Hydroxy (D3) 29.7 ng/mL (30.0-100.0)
[2024-01-29 11:13] LABS: Prostate Specific Antigen Scrn 1.12 ng/mL (0.1-4.0)
[2024-01-29 11:14] LABS: TSH w/ Reflex to FT4 1.22 uIU/mL (0.47-4.68)
[2024-01-29 11:33] LABS: Vitamin B12 270 pg/mL (239-931)
[2024-01-29 13:20] LABS: Creatinine Urine Random 118.14 mg/dL
[2024-01-29 13:22] LABS: Microalbumin Urine Random 1.3 mg/dL (0-1.6)
== END ==
PROVIDERS: PCP Family Medicine; Referring Provider Family Medicine; Visit Provider Family Medicine
DX: Z13.21 Encounter for screening for nutritional disorder (principal); Z12.5 Encounter for screening for malignant neoplasm of prostate; Z13.228 Encounter for screening for other metabolic disorders; Z13.220 Encounter for screening for lipoid disorders; E11.9 Type 2 diabetes mellitus without complications; R20.0 Anesthesia of skin; R20.2 Paresthesia of skin; M79.671 Pain in right foot; M79.672 Pain in left foot
CPT/HCPCS: 36415; 80053; 80061; 82043; 82306; 82570; 82607; 83036; 84443; 85025; G0103

== ENCOUNTER → 2024-02-10 10:46 | Outpatient (CLI) | payer OTHER, SELFPAY ==
[2021-05-12 13:06] VITALS: BMI 29.9
--- NOTE | 2024-02-10 10:48 | DI.CT.S_ITS ---
PROCEDURE: CT LUNG LOW DOSE SCREENING INDICATIONS: 50+ year smoking hx TECHNIQUE: Noncontrast 2.0-2.5 mm thick sections acquired from the pulmonary apices to the posterior costophrenic angles. 7 mm thick axial MIP, and 5 mm coronal and sagittal reformats were then acquired. For radiation dose reduction, the following was used: automated exposure control, adjustment of mA and/or kV according to patient size. COMPARISON: [facility], CT, CT CHEST ABD PEL W CON, 12/18/2022, 14:45. FINDINGS: Image quality: Diagnostic. Lower Neck: No enlarged lymph nodes. Thyroid: No thyroid nodules which require sonographic follow up, per consensus guidelines. Axillae: No enlarged lymph nodes. Chest Wall: Unremarkable. Bones: Postsurgical changes from left shoulder arthroplasty with associated metal artifact at the same level. Lungs and Pleura: No pneumothorax or pleural effusions. No consolidation or suspicious nodules. Heart: Heart size is normal. No pericardial effusion. Mild coronary artery calcifications. Thoracic Vessels: The aorta and pulmonary arteries demonstrate normal size. Mediastinum and Suri: No enlarged lymph nodes. Esophagus: No wall thickening. Upper Abdomen: Postsurgical changes are seen from prior gastric bypass. Small hiatal hernia. Benign appearing cyst is seen in the left hepatic lobe. IMPRESSION: No suspicious pulmonary nodules. LUNG-RADS 1; continued annual screening, if eligible. Clinically Significant Non-pulmonary Findings: None. Approved by: Osman Ford M.D. on 02/10/2024 at 15:53
== END ==
PROVIDERS: PCP Family Medicine; Referring Provider Family Medicine; Visit Provider Family Medicine
DX: Z87.891 Personal history of nicotine dependence (principal); Z12.2 Encounter for screening for malignant neoplasm of respiratory organs
CPT/HCPCS: 71271

== ENCOUNTER → 2024-07-03 09:38 | Outpatient (CLI) | payer OTHER, SELFPAY ==
[2021-05-12 13:06] VITALS: BMI 29.9
--- NOTE | 2024-07-03 09:43 | DI.RAD.S_ITS ---
PROCEDURE: XR KNEE RT 3V INDICATIONS: knee pain TECHNIQUE: 3 views of the knee were acquired. COMPARISON: None. FINDINGS: Bones: No fractures or dislocations. Osteophytic lipping. Mild joint space loss at the patellofemoral compartment. No suspicious bony lesions. Soft tissues: Trace joint effusion. No suspicious soft tissue calcifications. IMPRESSION: [id number] right knee DJD. Dictated by: Sreekanth Mascorro M.D. on 07/04/2024 at 22:38 Approved by: Sreekanth Mascorro M.D. on 07/04/2024 at 22:40
[2024-07-03 10:29] LABS: Hematocrit 39.1 % (41-53); Mean Corpuscular HGB Conc 33.2 % (30-36); Mean Corpuscular Hemoglobin 28.4 PG (26-34); Mean Corpuscular Volume 85.8 fL (80-100); Platelet Count 407 X10^3/uL (150-400); Red Blood Cell Count 4.56 X10^6/uL (4.5-5.9); Red Cell Distribution Width 14.8 % (11.6-14.8); White Blood Cell Count 5.3 X10^3/uL (4.5-11.0)
[2024-07-03 10:32] LABS: Hemoglobin A1C% w Est Avg Glu 5.4 % (4.0-6.0)
[2024-07-03 10:47] LABS: Alanine Aminotransferase 19 IU/L (<50); Albumin Globulin Ratio 1.3 (1.0-2.8); Alkaline Phosphatase 118 U/L (38-126); Aspartate Aminotransferase 28 IU/L (17-59); BUN Creatinine Ratio 12.5 (6-22); Bilirubin Total 0.4 mg/dL (0.2-1.3); Blood Urea Nitrogen 13 mg/dL (9-20); Calcium 8.8 mg/dL (8.4-10.2); Carbon Dioxide 23 mmol/L (22-32); Chloride 111 mmol/L (98-107); Cholesterol 203 mg/dL (140-199); Estimated Glomerular Filt Rate > 60 mL/min (>60); Globulin 3.2 g/dL (1.7-4.1); Glucose 98 mg/dL (80-110); HDL Cholesterol 41 mg/dL (40-60); HEMOLYSIS < 15 (0-50); LDL Cholesterol Calculated 141 mg/dL (<100); Potassium 3.3 mmol/L (3.4-5.1); Sodium 141 mmol/L (137-145); Total Protein 7.2 g/dL (6.3-8.2); Triglycerides 106 mg/dL (35-150)
[2024-07-03 11:04] LABS: Vitamin D 25 Hydroxy (D3) 28.8 ng/mL (30.0-100.0)
[2024-07-03 11:36] LABS: Vitamin B12 270 pg/mL (239-931)
== END ==
PROVIDERS: PCP Family Medicine; Referring Provider Family Medicine; Visit Provider Family Medicine
DX: M17.11 Unilateral primary osteoarthritis, right knee (principal); M25.561 Pain in right knee; G89.29 Other chronic pain; I10 Essential (primary) hypertension; E11.9 Type 2 diabetes mellitus without complications; E55.9 Vitamin D deficiency, unspecified; Z13.21 Encounter for screening for nutritional disorder; Z98.84 Bariatric surgery status
CPT/HCPCS: 36415; 73562; 80053; 80061; 82306; 82607; 83036; 85027

== ENCOUNTER → 2024-12-28 10:58 | Outpatient (CLI) | payer OTHER, SELFPAY ==
[2024-09-27 08:43] VITALS: BMI 29.9
--- NOTE | 2024-12-28 11:00 | DI.US.S_ITS ---
PROCEDURE: US ABD AORTA ANEURYSM SCREEN INDICATIONS: Tobacco use TECHNIQUE: Real-time scanning was performed of the aorta and proximal common iliac arteries, with image documentation. COMPARISON: [facility], CT, CT CHEST ABD PEL W CON, 12/18/2022, 14:45. [facility], CT, CT LUNG LOW DOSE SCREENING, 02/10/2024, 11:14. FINDINGS: Aorta: Abdominal aorta is normal in caliber throughout its length. Proximal: Not visualized. Bowel gas. Mid: 2.2 cm. Distal: 1.8 cm. Iliacs: Proximal common iliac arteries are normal in caliber. Right JODIE: 1.1 cm. Left JODIE: 1.3 cm. IMPRESSION: No abdominal aortic aneurysm. Dictated by: Sreekanth Mascorro M.D. on 12/28/2024 at 16:45 Approved by: Sreekanth Mascorro M.D. on 12/28/2024 at 16:47
[2024-12-28 11:35] LABS: Hematocrit 36.1 % (41-53); Hemoglobin 12.5 g/dL (13.5-17.5); Mean Corpuscular HGB Conc 34.6 % (30-36); Mean Corpuscular Hemoglobin 29.4 PG (26-34); Mean Corpuscular Volume 84.9 fL (80-100); Platelet Count 315 X10^3/uL (150-400)
[2024-12-28 11:45] LABS: HEMOLYSIS 20 (0-50); Iron 59 ug/dL (49-181)
[2024-12-28 11:46] LABS: Alanine Aminotransferase 36 IU/L (<50); Albumin 4.1 g/dL (3.5-5.0); Albumin Globulin Ratio 1.5 (1.0-2.8); Alkaline Phosphatase 141 U/L (38-126); Blood Urea Nitrogen 15 mg/dL (9-20); Calcium 8.8 mg/dL (8.4-10.2); Carbon Dioxide 26 mmol/L (22-32); Chloride 107 mmol/L (98-107); Cholesterol 99 mg/dL (140-199); Estimated Glomerular Filt Rate > 60 mL/min (>60); Globulin 2.7 g/dL (1.7-4.1); Glucose 95 mg/dL (70-99); HDL Cholesterol 47 mg/dL (40-60); HEMOLYSIS 15 (0-50); Potassium 2.9 mmol/L (3.4-5.1); Sodium 145 mmol/L (137-145); Total Protein 6.8 g/dL (6.3-8.2); Triglycerides 82 mg/dL (35-150)
[2024-12-28 11:56] LABS: Percent Iron Saturation 17 % (20-50); Total Iron Binding Capacity 340 ug/dL (261-462); Transferrin 263 mg/dL (206-381)
[2024-12-28 12:02] LABS: Hemoglobin A1C% w Est Avg Glu 5.9 % (4.0-6.0)
[2024-12-28 12:21] LABS: Ferritin 41 ng/mL (18-464)
[2024-12-28 12:39] LABS: Vitamin B12 Reflex MMA if <400 223 pg/mL (239-931)
[2024-12-28 12:53] LABS: Folate 1.8 ng/mL (2.76-20.0)
[2024-12-28 15:01] LABS: Microalbumi Creatinin Ratio Ur 21.0 ug/mg CR (<30)
[2024-12-28 15:30] LABS: Vitamin D 25 Hydroxy (D3) 38.8 ng/mL (30.0-100.0)
[2024-12-28 16:15] LABS: Hep C Virus Ab w/Reflex Quant NEGATIVE s/c (NEGATIVE)
== END ==
PROVIDERS: PCP Family Medicine; Referring Provider Family Medicine; Visit Provider Family Medicine
DX: Z72.0 Tobacco use (principal); Z12.5 Encounter for screening for malignant neoplasm of prostate; Z13.21 Encounter for screening for nutritional disorder; Z11.59 Encounter for screening for other viral diseases; E11.9 Type 2 diabetes mellitus without complications; I10 Essential (primary) hypertension; D64.9 Anemia, unspecified; E55.9 Vitamin D deficiency, unspecified; Z98.84 Bariatric surgery status
CPT/HCPCS: 36415; 76706; 80053; 80061; 82043; 82306; 82570; 82607; 82728; 82746; 83036; 83540; 83550; 83921; 84425; 85027; 86803; G0103

== ENCOUNTER 2025-04-26 09:50 | Outpatient (CLI) | payer OTHER, SELFPAY ==
[2024-09-27 08:43] VITALS: BMI 29.9
[2025-04-26] VITALS (8 sets, daily range): BP systolic 170–221; BP diastolic 61–99; PULSE 45–51; RESP 11–17; TEMP 37.1; O2SAT 96–100
[2025-04-26] MEDS: MIDAZOLAM 2 MG/2 ML VIAL IV (11:55)
[2025-04-26] MEDS: BETAMETHASONE 30 MG/5 ML MDV 12 MG INJ (11:59)
[2025-04-26] MEDS: BETAMETHASONE 30 MG/5 ML MDV 6 MG INJ (12:02)
--- NOTE | 2025-04-26 12:15 | PM.PROC.IR.1 ---
Date/Time/Diagnoses Date of procedure: 04/26/25 Time of procedure: 12:15 Pre-procedure diagnosis: 1. FORAMINAL STENOSIS WITH LE SYMPTOMS Procedure Notes Procedure: 1. FLUOROSCOPICALLY GUIDED CONTRAST CONTROLLED TRANSFORAMINAL EPIDURAL STEROID INJECTION - BILATERAL L4/5 TFESI Indications: Lisandro is referred by Dr. Araya for treatment of Foraminal Stenosis with bilateral LE Symptoms Physician: Barrera Griffin Total Fluoroscopy time (seconds): 16 Total sedation minutes: 16 Complications: none Procedure in detail & Post-procedure care: FINDINGS Foraminal Nerve Root Compression secondary to disc disease and facet hypertrophy DESCRIPTION OF PROCEDURE Following review of allergy and review of potential side effects and complications, including, but not necessarily limited to, infection, allergic reaction, local tissue breakdown, stroke, temporary or permanent nerve injury, paralysis, and possible , the patient indicated that the patient understood and agreed to proceed. An informed consent document was signed by the patient, witnessed by a nurse, and placed in the patient's chart. Additionally, other treatment options including medications, modalities, and physical therapy were reviewed with the patient. After review of previous anaesthesic history and IV conscious sedation the patient was deemed safe to proceed with today?s procedure with IV conscious sedation as ASA class II designation. Safety time-out was performed to confirm patient ID, procedure to be performed and site of procedure. IV sedation was accomplished with a combination of 2mg of Versed was administered by the RN after DO order, titrated to patient comfort during the course of the procedure while the patient remained responsive to all verbal commands In the prone position following sterile prep and drape of the lumbar region, the right L4/5 posterior neuroforamen was identified fluoroscopically. The skin was anesthetized via a 25-gauge 1.5-inch needle with 1% lidocaine solution. At this point, a 25-gauge 3.5-inch spinal needle was atraumatically introduced and advanced under fluoroscopic guidance through the posterior right L4/5 neuroforamen to approximately the anterior aspect of the canal. Depth was confirmed on lateral view. Following negative aspiration, injection of approximately 1.5cc of Isovue 200 under live fluoroscopy in the AP view confirmed excellent flow along the nerve root, into the epidural space without vascular or intrathecal uptake observed Radiological data, including multiple fluoroscopic views of the lumbosacral spine, reveal a spinal needle at the right L4/5 posterior neuroforamen. Subsequent views show flow of contrast material flowing superiorly and inferiorly along the nerve root confirming epidural flow. Subsequently, a test dose of 1.5cc of 1% lidocaine solution was administered and patient was observed for two minutes for signs or symptoms of complications, including abdominal pain, shortness of breath, bilateral upper or lower extremity weakness, nausea and vomiting, prior to steroid injection. At this point, a total of 2cc or 10mg of dexamethasone and 6mg betamethasone was injected without incident. Attention was then refocused to the left L4/5 level where the identical procedure was replicated. The procedure tolerated the procedure well without signs or symptoms of complications prior to transfer to the recovery area continued monitoring without incident. The patient was then transferred to the recovery area where they were observed for an appropriate time after the injection. The patient reported a VAS score of 7 prior to the procedure and a post-procedure VAS of 0. POST OP INSTRUCTIONS The patient was provided a Pain Log to continue to record their response to the target-specific procedure prior to follow-up visit with their referring physician. Additionally, specific post-injection care instructions and a contact number to our office were provided if concerns arise regarding possible complications associated with the procedure are suspected.
== END 2025-04-26 12:53 | disposition home or self-care (01) ==
LOC: RAD 09:50
PROVIDERS: PCP Family Medicine; Referring Provider Physical Medicine & Rehabilitation; Visit Provider Physical Medicine & Rehabilitation
DX: M48.061 Spinal stenosis, lumbar region without neurogenic claudication (principal); M51.16 Intervertebral disc disorders with radiculopathy, lumbar region; M47.26 Other spondylosis with radiculopathy, lumbar region
CPT/HCPCS: 64483; 99152; J0702; J1100; J2250